=== PATIENT | male | born 1940 | race Caucasian/White ===

== ENCOUNTER 2017-12-15 14:55 | Inpatient (IN) ==
[2017-12-15] MEDS ORDERED: SODIUM PHOSPHATE ENEMA 133 ML BOTTLE RECTAL ONE ×3 (16:43→17:58)
[2017-12-15] MEDS ORDERED: SODIUM PHOSPHATE ENEMA 133 ML BOTTLE RECTAL STA ×4 (16:50→22:01)
[2017-12-15 20:47] LABS: Calcium 8.7 MG/DL (8.5-10.1); Osmolality,Calculated 271.2 MOS/KG (273-304)
[2017-12-15 21:01] LABS: Basophils % 0.1 % (0.0-0.8); Immature Granulocytes % 0.5 %; Immature Granulocytes Absolute 0.15 #; Lymphocytes # 0.6 10*3/uL (1.4-4.0); Lymphocytes % 2.1 % (21.2-54.2); Mean Corpuscular HGB Conc 33.3 GM/DL (32-36); Mean Corpuscular Hemoglobin 32 PG (27-34); Mean Corpuscular Volume 94.7 FL (87-102); Mean Platelet Volume 9.7 FL (9.6-12.0); Monocytes # 1.1 10*3/uL (0.11-0.8); Monocytes % 3.8 % (1.7-12.7); Neutrophils # 25.7 10*3/uL (1.4-7.4); Neutrophils % 93.5 % (38.7-73.9); Platelet Count 205 T/CUMM (130-400); Red Blood Count 4.12 MC/CUMM (3.8-5.5); Red Cell Distribution Width 12.7 % (9.3-17.3); White Blood Count 27.5 T/CUMM (4-12)
[2017-12-15 21:40] LABS: Band Neutrophils 10 % (0-10); Lymphocytes 3 % (20-55); Platelet Estimate Adequate; Segmented Neutrophils 83 % (50-85); Total Cells Counted 100
[2017-12-15] MEDS ORDERED: ONDANSETRON 4 MG/2 ML VIAL IV PRN (21:55)
[2017-12-15] MEDS ORDERED: ACETAMINOPHEN 325 MG TABLET PO PRN (21:55)
[2017-12-15] MEDS: SODIUM CHLORIDE 0.9% 1,000 ML IV SCH (22:06)
[2017-12-15] MEDS: DOCUSATE SODIUM 100 MG CAPSULE PO SCH (22:13)
[2017-12-15] MEDS ORDERED: PHENYLEPH/MINERAL OIL/PETROLAT 57 GM TUBE TOP PRN (22:25)
[2017-12-16] MEDS: SODIUM CHLORIDE 0.9% 1,000 ML IV SCH ×3 (06:32→23:00)
[2017-12-16 07:35] LABS: Basophils % 0.1 % (0.0-0.8); Eosinophils # 0.1 10*3/uL (0.0-0.87); Eosinophils % 0.5 % (0.00-10.9); Hematocrit 34.6 VOL% (42.0-52.0); Hemoglobin 11.9 GM/DL (14.0-18.0); Immature Granulocytes % 0.5 %; Immature Granulocytes Absolute 0.07 #; Lymphocytes # 1.2 10*3/uL (1.4-4.0); Lymphocytes % 7.9 % (21.2-54.2); Mean Corpuscular HGB Conc 34.4 GM/DL (32-36); Mean Corpuscular Hemoglobin 32 PG (27-34); Mean Corpuscular Volume 92.5 FL (87-102); Mean Platelet Volume 9.9 FL (9.6-12.0); Monocytes # 1.2 10*3/uL (0.11-0.8); Monocytes % 7.8 % (1.7-12.7); Neutrophils # 12.8 10*3/uL (1.4-7.4); Neutrophils % 83.2 % (38.7-73.9); Platelet Count 187 T/CUMM (130-400); Red Blood Count 3.74 MC/CUMM (3.8-5.5); White Blood Count 15.4 T/CUMM (4-12)
[2017-12-16] MEDS ORDERED: DIBUCAINE 1% OINT 28 GM TUBE TOP PRN (08:31)
[2017-12-16] MEDS: PANTOPRAZOLE 40 MG TABLET PO SCH (09:19)
[2017-12-16] MEDS: DILTIAZEM CD 180 MG CAPSULE PO SCH (09:19)
[2017-12-16] MEDS: TAMSULOSIN 0.4 MG CAPSULE PO SCH (09:19)
[2017-12-16] MEDS: DOCUSATE SODIUM 100 MG CAPSULE PO SCH ×2 (09:19→21:43)
[2017-12-16] MEDS: VALSARTAN 80 MG TABLET PO SCH (09:19)
[2017-12-16] MEDS: DIGOXIN 0.125 MG TABLET PO SCH (13:15)
[2017-12-16] MEDS ORDERED: CIPROFLOXACIN INJ 400 MG in PREMIX 1 EACH IV SCH (15:30)
[2017-12-16] MEDS ORDERED: LINACLOTIDE 145 MCG CAPSULE PO ONE (16:03)
[2017-12-16] MEDS ORDERED: MAGNESIUM HYDROXIDE SUSP 30 ML UDCUP PO ONE (17:07)
[2017-12-16] MEDS: APIXABAN 5 MG TABLET PO SCH (21:43)
[2017-12-17] MEDS: SODIUM CHLORIDE 0.9% 1,000 ML IV SCH ×3 (02:15→17:12)
[2017-12-17] MEDS: ASPIRIN EC 81 MG TABLET PO SCH (08:47)
[2017-12-17] MEDS: DILTIAZEM CD 180 MG CAPSULE PO SCH (08:47)
[2017-12-17] MEDS: VALSARTAN 80 MG TABLET PO SCH (08:47)
[2017-12-17] MEDS: APIXABAN 5 MG TABLET PO SCH ×2 (08:47→21:20)
[2017-12-17] MEDS: PANTOPRAZOLE 40 MG TABLET PO SCH (08:47)
[2017-12-17] MEDS: DOCUSATE SODIUM 100 MG CAPSULE PO SCH ×2 (08:48→21:20)
[2017-12-17] MEDS: DIGOXIN 0.125 MG TABLET PO SCH (08:48)
[2017-12-17] MEDS: VANCOMYCIN 50 MG/ML 60 ML/BOTTLE PO SCH ×3 (08:48→17:13)
[2017-12-17] MEDS ORDERED: INVOKAMET PO SCH (09:00)
[2017-12-18] MEDS: VANCOMYCIN 50 MG/ML 60 ML/BOTTLE PO SCH ×2 (01:12→05:51)
[2017-12-18] MEDS: SODIUM CHLORIDE 0.9% 1,000 ML IV SCH ×2 (01:12→08:44)
[2017-12-18 07:51] VITALS: BP 149/73
[2017-12-18] MEDS: DIGOXIN 0.125 MG TABLET PO SCH (08:42)
[2017-12-18] MEDS: TAMSULOSIN 0.4 MG CAPSULE PO SCH (08:43)
[2017-12-18] MEDS: APIXABAN 5 MG TABLET PO SCH (08:43)
[2017-12-18] MEDS: ASPIRIN EC 81 MG TABLET PO SCH (08:43)
[2017-12-18] MEDS: DOCUSATE SODIUM 100 MG CAPSULE PO SCH (08:43)
[2017-12-18] MEDS: PANTOPRAZOLE 40 MG TABLET PO SCH (08:43)
[2017-12-18] MEDS: VALSARTAN 80 MG TABLET PO SCH (08:43)
[2017-12-18] MEDS: DILTIAZEM CD 180 MG CAPSULE PO SCH (08:43)
== END 2017-12-18 09:30 | disposition home or self-care (01) | DRG 389 ==
LOC: N.2E 14:55 → N.ED 14:55 → N.2E 21:49
PROVIDERS: ADMIT Family Medicine; ATTEND Family Medicine

== ENCOUNTER 2019-01-23 07:07 | Observation (INO) ==
[2019-01-23] MEDS ORDERED: ONDANSETRON 4 MG/2 ML VIAL ONE (07:30)
[2019-01-23] MEDS ORDERED: SODIUM CHLORIDE 0.9% 1,000 ML IV STA (07:34)
[2019-01-23] MEDS ORDERED: ONDANSETRON 4 MG/2 ML VIAL IV STA (07:34)
[2019-01-23 07:38] LABS: Basophils % 0.3 % (0.0-0.8); Eosinophils % 0.3 % (0.00-10.9); Hematocrit 40.8 VOL% (42.0-52.0); Hemoglobin 13.2 GM/DL (14.0-18.0); Immature Granulocytes % 0.4 %; Immature Granulocytes Absolute 0.05 #; Lymphocytes # 0.2 10*3/uL (1.4-4.0); Lymphocytes % 1.7 % (21.2-54.2); Mean Corpuscular HGB Conc 32.4 GM/DL (32-36); Mean Corpuscular Volume 96.9 FL (87-102); Mean Platelet Volume 10.1 FL (9.6-12.0); Monocytes % 3.9 % (1.7-12.7); Neutrophils % 93.4 % (38.7-73.9); Platelet Count 176 T/CUMM (130-400); Red Blood Count 4.21 MC/CUMM (3.8-5.5); Red Cell Distribution Width 12.7 % (9.3-17.3); White Blood Count 11.9 T/CUMM (4-12)
[2019-01-23 07:55] LABS: Albumin 3.6 G/DL (3.4-5.0); Bilirubin,Total 0.5 MG/DL (0.2-1.0); Calcium 9.1 MG/DL (8.5-10.1); Osmolality,Calculated 290.3 MOS/KG (273-304)
[2019-01-23 07:57] LABS: Band Neutrophils 10 % (0-10); Hypochromasia 1+; Lymphocytes 1 % (20-55); Ovalocytes Slight; Platelet Estimate Adequate; Segmented Neutrophils 83 % (50-85); Total Cells Counted 100
[2019-01-23 08:13] LABS: Apearance,Urine CLEAR (Clear); Bilirubin,Urine Negative (Negative); Blood, Urine Negative (Negative); Glucose,Urine (UA) Negative (Negative); Ketones,Urine Negative (Negative); Mucus,Urine Occasional /LPF (Occasional); Nitrite,Urine Negative (Negative); Protein,Urine Negative; RBC,Urine 2 /HPF (0-4); Squamous Epithelial Cell,Urine Occasional /HPF (0-10); Urine Color Yellow (Yellow); Urine Specific Gravity 1.021 (1.001-1.035); Urine Urobilinogen < 2.0 EU/DL (0.2-1.0); WBC,Urine 1 /HPF (0-6)
[2019-01-23] MEDS ORDERED: ONDANSETRON 4 MG/2 ML VIAL IV PRN (12:48)
[2019-01-23] MEDS ORDERED: ACETAMINOPHEN 325 MG TABLET PO PRN (12:48)
[2019-01-23] MEDS ORDERED: KETOROLAC 15 MG/1 ML VIAL IV ONE (12:50)
[2019-01-23] MEDS ORDERED: HYOSCYAMINE 0.125 MG TABLET PO PRN (12:51)
[2019-01-23] MEDS ORDERED: SIMETHICONE CHEW 80 MG TABLET PO PRN (12:52)
[2019-01-23] MEDS: SODIUM CHLORIDE 0.9% 1,000 ML IV SCH ×2 (13:03→19:44)
[2019-01-23] MEDS ORDERED: DOCUSATE SODIUM 100 MG CAPSULE PO SCH (21:00)
[2019-01-23] MEDS ORDERED: DIPHENOXYLATE/ATROPINE 2.5-0.025 MG TABLET PO PRN (21:42)
[2019-01-23] MEDS ORDERED: LOPERAMIDE 2 MG CAPSULE PO PRN (22:13)
[2019-01-24] MEDS: SODIUM CHLORIDE 0.9% 1,000 ML IV SCH ×4 (02:45→23:18)
[2019-01-24 05:44] LABS: Basophils % 0.3 % (0.0-0.8); Eosinophils % 0.4 % (0.00-10.9); Hematocrit 32.6 VOL% (42.0-52.0); Hemoglobin 10.4 GM/DL (14.0-18.0); Immature Granulocytes % 0.6 %; Immature Granulocytes Absolute 0.04 #; Lymphocytes # 0.6 10*3/uL (1.4-4.0); Lymphocytes % 8.1 % (21.2-54.2); Mean Corpuscular HGB Conc 31.9 GM/DL (32-36); Mean Corpuscular Volume 98.5 FL (87-102); Mean Platelet Volume 10.2 FL (9.6-12.0); Monocytes % 11.1 % (1.7-12.7); Neutrophils % 79.5 % (38.7-73.9); Platelet Count 131 T/CUMM (130-400); Red Blood Count 3.31 MC/CUMM (3.8-5.5); Red Cell Distribution Width 13.2 % (9.3-17.3); White Blood Count 6.8 T/CUMM (4-12)
[2019-01-24 06:13] LABS: Calcium 7.8 MG/DL (8.5-10.1); Osmolality,Calculated 283.3 MOS/KG (273-304)
[2019-01-24] MEDS: PANTOPRAZOLE 40 MG TABLET PO SCH (09:16)
[2019-01-24] MEDS: MAGNESIUM CHLORIDE 64 MG TABLET PO SCH ×2 (09:17→20:31)
[2019-01-24] MEDS: POTASSIUM CHLORIDE 20 MEQ TABLET PO SCH (09:17)
[2019-01-24] MEDS ORDERED: TAMSULOSIN 0.4 MG CAPSULE PO SCH (17:00)
[2019-01-24] MEDS: APIXABAN 5 MG TABLET PO SCH (20:31)
[2019-01-25] MEDS: SODIUM CHLORIDE 0.9% 1,000 ML IV SCH (06:06)
[2019-01-25 07:39] VITALS: BP 136/78
[2019-01-25] MEDS ORDERED: DIGOXIN 0.125 MG TABLET PO SCH (09:00)
[2019-01-25] MEDS ORDERED: DILTIAZEM CD 180 MG CAPSULE PO SCH (09:00)
[2019-01-25] MEDS ORDERED: CANAGLIFLOZIN METFORMIN PO SCH (09:00)
[2019-01-25] MEDS ORDERED: ATORVASTATIN 20 MG TABLET PO SCH (09:00)
[2019-01-25] MEDS ORDERED: MULTIVITAMIN (CENTRUM) TABLET PO SCH (09:00)
[2019-01-25] MEDS ORDERED: VALSARTAN 80 MG TABLET PO SCH (09:00)
[2019-01-25] MEDS ORDERED: ASPIRIN EC 81 MG TABLET PO SCH (09:00)
[2019-01-25] MEDS: PANTOPRAZOLE 40 MG TABLET PO SCH (09:20)
[2019-01-25] MEDS: MAGNESIUM CHLORIDE 64 MG TABLET PO SCH (09:21)
[2019-01-25] MEDS: POTASSIUM CHLORIDE 20 MEQ TABLET PO SCH (09:21)
[2019-01-25] MEDS: APIXABAN 5 MG TABLET PO SCH (09:22)
== END 2019-01-25 10:25 | disposition home or self-care (01) ==
LOC: EDUNIT# → EDBD → N.EDINP 07:07 → N.ED 07:07 → N.2E 10:30
PROVIDERS: ADMIT Family Medicine; ATTEND Family Medicine

== ENCOUNTER 2019-07-22 18:36 | Inpatient (IN) ==
[2019-07-22] MEDS ORDERED: DIPHTHERIA/TETANUS ADULT VACCINE 0.5 ML SYRINGE IM ONE (18:57)
[2019-07-22] MEDS ORDERED: ACETAMINOPHEN 500 MG TABLET ONE (20:49)
[2019-07-22 20:58] LABS: Basophils % 0.1 % (0.0-0.8); Eosinophils # 0.1 10*3/uL (0.0-0.87); Eosinophils % 0.3 % (0.00-10.9); Hematocrit 39.9 VOL% (42.0-52.0); Hemoglobin 12.8 GM/DL (14.0-18.0); Immature Granulocytes % 0.7 %; Immature Granulocytes Absolute 0.11 #; Lymphocytes # 0.5 10*3/uL (1.4-4.0); Lymphocytes % 3.3 % (21.2-54.2); Mean Corpuscular HGB Conc 32.1 GM/DL (32-36); Mean Corpuscular Volume 98.3 FL (87-102); Mean Platelet Volume 10.4 FL (9.6-12.0); Monocytes % 5.3 % (1.7-12.7); Neutrophils % 90.3 % (38.7-73.9); Platelet Count 206 T/CUMM (130-400); Red Blood Count 4.06 MC/CUMM (3.8-5.5); Red Cell Distribution Width 13.2 % (9.3-17.3); White Blood Count 15.6 T/CUMM (4-12)
[2019-07-22] MEDS ORDERED: ACETAMINOPHEN 500 MG TABLET PO STA (20:58)
[2019-07-22 21:10] LABS: Albumin 4.2 G/DL (3.4-5.0); Bilirubin,Total 0.4 MG/DL (0.2-1.0); Calcium 9.3 MG/DL (8.5-10.1); Osmolality,Calculated 272.4 MOS/KG (273-304); Total Protein 7.6 G/DL (6.4-8.3)
[2019-07-22 21:12] LABS: PT Patient Result 10.4 SECS (9.6-12.2); Partial Thromboplastin Time 25.7 SECS (20.8-36.0)
[2019-07-22 21:19] LABS: Lymphocytes 5 % (20-55); Platelet Estimate Adequate; Segmented Neutrophils 92 % (50-85); Total Cells Counted 100
[2019-07-22 21:28] LABS: Apearance,Urine CLEAR (Clear); Bilirubin,Urine Negative (Negative); Blood, Urine Small mg/dL (Negative); Glucose,Urine (UA) Negative (Negative); Hyaline Casts,Urine 4 /LPF (0-3); Ketones,Urine Negative (Negative); Mucus,Urine Occasional /LPF (Occasional); Nitrite,Urine Negative (Negative); Protein,Urine 30 MG/DL; RBC,Urine 1 /HPF (0-4); Squamous Epithelial Cell,Urine Occasional /HPF (0-10); Urine Color Yellow (Yellow); Urine Urobilinogen < 2.0 EU/DL (0.2-1.0); WBC,Urine 2 /HPF (0-6)
[2019-07-22] MEDS ORDERED: ACETAMINOPHEN 325 MG TABLET PO PRN (21:55)
[2019-07-22] MEDS ORDERED: ONDANSETRON 4 MG/2 ML VIAL IV PRN (21:55)
[2019-07-22] MEDS ORDERED: COLCHICINE 0.6 MG CAPSULE PO PRN (21:58)
[2019-07-22] MEDS ORDERED: PHENYLEPH/MINERAL OIL/PETROLAT 57 GM TUBE TOP PRN (21:58)
[2019-07-22] MEDS ORDERED: DEXTROSE 50% 25 GM/50 ML SYRINGE IV PRN (21:59)
[2019-07-22] MEDS ORDERED: GLUCAGON 1 MG VIAL IM PRN (21:59)
[2019-07-23 01:14] LABS: Basophils % 0.2 % (0.0-0.8); Eosinophils % 0.2 % (0.00-10.9); Hematocrit 34.6 VOL% (42.0-52.0); Hemoglobin 11.2 GM/DL (14.0-18.0); Immature Granulocytes % 0.3 %; Immature Granulocytes Absolute 0.04 #; Lymphocytes # 0.6 10*3/uL (1.4-4.0); Lymphocytes % 4.7 % (21.2-54.2); Mean Corpuscular HGB Conc 32.4 GM/DL (32-36); Mean Platelet Volume 10.5 FL (9.6-12.0); Monocytes % 5.8 % (1.7-12.7); Neutrophils % 88.8 % (38.7-73.9); Platelet Count 185 T/CUMM (130-400); Red Blood Count 3.53 MC/CUMM (3.8-5.5); Red Cell Distribution Width 13.3 % (9.3-17.3); White Blood Count 13.3 T/CUMM (4-12)
[2019-07-23 04:56] LABS: Anisocytosis 1+; Eosinophils 2 % (0-10); Hypochromasia 1+; Lymphocytes 5 % (20-55); Platelet Estimate Adequate; Segmented Neutrophils 88 % (50-85); Total Cells Counted 100
[2019-07-23] MEDS: HYDROmorphone 2 MG/1 ML VIAL IV PRN ×2 (09:21→18:43)
[2019-07-23] MEDS: DIGOXIN 0.125 MG TABLET PO SCH (09:22)
[2019-07-23] MEDS: CYANOCOBALAMIN 500 MCG TABLET PO SCH (09:23)
[2019-07-23] MEDS: PANTOPRAZOLE 40 MG TABLET PO SCH (09:23)
[2019-07-23] MEDS: DILTIAZEM CD 180 MG CAPSULE PO SCH (09:23)
[2019-07-23] MEDS: VALSARTAN 80 MG TABLET PO SCH (09:23)
[2019-07-23] MEDS: DOCUSATE SODIUM 100 MG CAPSULE PO SCH ×2 (09:23→23:50)
[2019-07-23] MEDS: ATORVASTATIN 20 MG TABLET PO SCH (09:23)
[2019-07-23] MEDS: OMEGA 3 ACID ETHYL ESTERS 1 GM CAPSULE PO SCH (09:23)
[2019-07-23 10:20] LABS: Hematocrit 33.2 VOL% (42.0-52.0); Hemoglobin 10.6 GM/DL (14.0-18.0)
[2019-07-23 18:27] LABS: Albumin 3.1 G/DL (3.4-5.0); Bilirubin,Total 0.6 MG/DL (0.2-1.0); Osmolality,Calculated 276.4 MOS/KG (273-304); Total Protein 6.1 G/DL (6.4-8.3)
[2019-07-24 05:27] LABS: Basophils % 0.4 % (0.0-0.8); Eosinophils # 0.3 10*3/uL (0.0-0.87); Eosinophils % 2.7 % (0.00-10.9); Hematocrit 30.3 VOL% (42.0-52.0); Hemoglobin 10.1 GM/DL (14.0-18.0); Immature Granulocytes % 0.3 %; Immature Granulocytes Absolute 0.03 #; Lymphocytes # 0.9 10*3/uL (1.4-4.0); Lymphocytes % 8.3 % (21.2-54.2); Mean Corpuscular HGB Conc 33.3 GM/DL (32-36); Mean Corpuscular Volume 96.8 FL (87-102); Mean Platelet Volume 11.4 FL (9.6-12.0); Monocytes % 10.2 % (1.7-12.7); Neutrophils % 78.1 % (38.7-73.9); Platelet Count 73 T/CUMM (130-400); Red Blood Count 3.13 MC/CUMM (3.8-5.5); Red Cell Distribution Width 13.5 % (9.3-17.3); White Blood Count 10.6 T/CUMM (4-12)
[2019-07-24 05:47] LABS: Eosinophils 3 % (0-10); Hypochromasia 1+; Lymphocytes 7 % (20-55); Ovalocytes Slight; Segmented Neutrophils 83 % (50-85); Total Cells Counted 100
[2019-07-24] MEDS ORDERED: MAGNESIUM HYDROXIDE SUSP 30 ML UDCUP PO ONE (08:56)
[2019-07-24] MEDS ORDERED: TAMSULOSIN 0.4 MG CAPSULE PO SCH (09:00)
[2019-07-24] MEDS: SODIUM CHLORIDE 0.9% 1,000 ML IV SCH ×2 (09:13→21:11)
[2019-07-24] MEDS: DIGOXIN 0.125 MG TABLET PO SCH (09:14)
[2019-07-24] MEDS: DILTIAZEM CD 180 MG CAPSULE PO SCH (09:14)
[2019-07-24] MEDS: PANTOPRAZOLE 40 MG TABLET PO SCH (09:15)
[2019-07-24] MEDS: DOCUSATE SODIUM 100 MG CAPSULE PO SCH ×2 (09:15→21:00)
[2019-07-24] MEDS: OMEGA 3 ACID ETHYL ESTERS 1 GM CAPSULE PO SCH (09:15)
[2019-07-24] MEDS: ATORVASTATIN 20 MG TABLET PO SCH (09:15)
[2019-07-24] MEDS: CYANOCOBALAMIN 500 MCG TABLET PO SCH (09:15)
[2019-07-24] MEDS: VALSARTAN 80 MG TABLET PO SCH (09:17)
[2019-07-24] MEDS: HYDROmorphone 2 MG/1 ML VIAL IV PRN (21:00)
[2019-07-25 05:24] LABS: Basophils % 0.3 % (0.0-0.8); Eosinophils # 0.3 10*3/uL (0.0-0.87); Eosinophils % 3.2 % (0.00-10.9); Hemoglobin 9.1 GM/DL (14.0-18.0); Immature Granulocytes % 0.4 %; Immature Granulocytes Absolute 0.04 #; Lymphocytes # 0.8 10*3/uL (1.4-4.0); Lymphocytes % 8.4 % (21.2-54.2); Mean Corpuscular HGB Conc 32.5 GM/DL (32-36); Mean Corpuscular Volume 97.2 FL (87-102); Mean Platelet Volume 10.3 FL (9.6-12.0); Monocytes % 10.1 % (1.7-12.7); Neutrophils % 77.6 % (38.7-73.9); Platelet Count 148 T/CUMM (130-400); Red Blood Count 2.88 MC/CUMM (3.8-5.5); Red Cell Distribution Width 13.2 % (9.3-17.3); White Blood Count 9.8 T/CUMM (4-12)
[2019-07-25 05:31] LABS: Albumin 2.6 G/DL (3.4-5.0); Bilirubin,Total 0.6 MG/DL (0.2-1.0); Calcium 7.8 MG/DL (8.5-10.1); Osmolality,Calculated 265.7 MOS/KG (273-304); Total Protein 5.7 G/DL (6.4-8.3)
[2019-07-25] MEDS: SODIUM CHLORIDE 0.9% 1,000 ML IV SCH (06:17)
[2019-07-25] MEDS: HYDROmorphone 2 MG/1 ML VIAL IV PRN (07:30)
[2019-07-25 07:57] VITALS: BP 128/69
[2019-07-25] MEDS: DOCUSATE SODIUM 100 MG CAPSULE PO SCH (08:57)
[2019-07-25] MEDS: PANTOPRAZOLE 40 MG TABLET PO SCH (08:57)
[2019-07-25] MEDS: DIGOXIN 0.125 MG TABLET PO SCH (08:57)
[2019-07-25] MEDS: ATORVASTATIN 20 MG TABLET PO SCH (08:57)
[2019-07-25] MEDS: VALSARTAN 80 MG TABLET PO SCH (08:58)
[2019-07-25] MEDS: OMEGA 3 ACID ETHYL ESTERS 1 GM CAPSULE PO SCH (08:58)
[2019-07-25] MEDS: CYANOCOBALAMIN 500 MCG TABLET PO SCH (08:58)
[2019-07-25] MEDS: DILTIAZEM CD 180 MG CAPSULE PO SCH (08:58)
== END 2019-07-25 12:40 | disposition home or self-care (01) | DRG 815 ==
LOC: EDUNIT# → EDBD → N.ED 18:36 → N.EDINP 18:36 → N.TELES 07-23
PROVIDERS: ADMIT Family Medicine; ATTEND Family Medicine

== ENCOUNTER 2021-11-08 14:05 | Inpatient (IN) ==
[2021-11-08 16:10] LABS: Basophils % 0.1 % (0.0-0.8); Hematocrit 31.3 VOL% (42.0-52.0); Immature Granulocytes % 0.6 %; Lymphocytes # 0.3 10*3/uL (1.4-4.0); Lymphocytes % 1.6 % (21.2-54.2); Mean Corpuscular HGB Conc 31.9 GM/DL (32-36); Mean Corpuscular Volume 96.9 FL (87-102); Mean Platelet Volume 9.8 FL (9.6-12.0); Monocytes # 0.8 10*3/uL (0.11-0.8); Monocytes % 4.4 % (1.7-12.7); Neutrophils % 93.3 % (38.7-73.9); Platelet Count 173 T/CUMM (130-400); Red Blood Count 3.23 MC/CUMM (3.8-5.5); Red Cell Distribution Width 14.6 % (9.3-17.3); White Blood Count 18.2 T/CUMM (4-12)
[2021-11-08] MEDS ORDERED: MORPHINE 2 MG/1 ML SYRINGE IV STA (16:11)
[2021-11-08] MEDS ORDERED: ONDANSETRON 4 MG/2 ML VIAL IV STA (16:12)
[2021-11-08] MEDS ORDERED: PIPERACILLIN/TAZOBACTAM 3,375 MG in SODIUM CHLORIDE 0.9% 100 ML IV STA (16:13)
[2021-11-08 16:29] LABS: Albumin 2.8 G/DL (3.4-5.0); Bilirubin,Total 0.6 MG/DL (0.20-1.00); Osmolality,Calculated 270.7 MOS/KG (273-304); Potassium 4.1 MMOL/L (3.5-5.1); Total Protein 6.9 G/DL (6.4-8.2)
[2021-11-08 17:00] LABS: Band Neutrophils 15 % (0-10); Lymphocytes 2 % (20-55); Total Cells Counted 100
[2021-11-08 17:01] LABS: Platelet Estimate Adequate
[2021-11-08] MEDS ORDERED: PROMETHAZINE 25 MG/1 ML VIAL IM PRN (17:29)
[2021-11-08] MEDS ORDERED: ACETAMINOPHEN 325 MG TABLET PO PRN (17:29)
[2021-11-08] MEDS ORDERED: ONDANSETRON 4 MG/2 ML VIAL IV PRN (17:29)
[2021-11-08] MEDS: KETOROLAC 30 MG/1 ML VIAL IV SCH (18:49)
[2021-11-08] MEDS: HYDROmorphone 1 MG/1 ML SYRINGE IV PRN (21:12)
[2021-11-09] MEDS: PIPERACILLIN/TAZOBACTAM 3,375 MG in SODIUM CHLORIDE 0.9% 100 ML IV SCH ×3 (01:06→17:53)
[2021-11-09] MEDS: KETOROLAC 30 MG/1 ML VIAL IV SCH ×5 (01:15→23:13)
[2021-11-09] MEDS: HYDROmorphone 1 MG/1 ML SYRINGE IV PRN ×2 (03:06→08:38)
[2021-11-09 05:43] LABS: Basophils % 0.2 % (0.0-0.8); Hematocrit 29.2 VOL% (42.0-52.0); Hemoglobin 9.5 GM/DL (14.0-18.0); Immature Granulocytes % 0.3 %; Immature Granulocytes Absolute 0.02 #; Lymphocytes # 0.1 10*3/uL (1.4-4.0); Lymphocytes % 1.5 % (21.2-54.2); Mean Corpuscular HGB Conc 32.5 GM/DL (32-36); Mean Corpuscular Volume 93.9 FL (87-102); Mean Platelet Volume 9.8 FL (9.6-12.0); Monocytes # 0.4 10*3/uL (0.11-0.8); Monocytes % 7.1 % (1.7-12.7); Neutrophils % 90.9 % (38.7-73.9); Platelet Count 146 T/CUMM (130-400); Red Blood Count 3.11 MC/CUMM (3.8-5.5); Red Cell Distribution Width 14.4 % (9.3-17.3); White Blood Count 5.9 T/CUMM (4-12)
[2021-11-09 05:59] LABS: Calcium 8.9 MG/DL (8.5-10.1); Osmolality,Calculated 268.7 MOS/KG (273-304)
[2021-11-09 07:03] LABS: Band Neutrophils 3 % (0-10); Lymphocytes 15 % (20-55); Platelet Estimate Normal; Total Cells Counted 100
[2021-11-09] MEDS: PANTOPRAZOLE 40 MG VIAL IV SCH (08:38)
[2021-11-09] MEDS: ENOXAPARIN 40 MG/0.4 ML SYRINGE SUBCUT SCH (12:36)
[2021-11-09] MEDS: BENZONATATE 100 MG CAPSULE PO PRN (20:32)
[2021-11-10] MEDS: PIPERACILLIN/TAZOBACTAM 3,375 MG in SODIUM CHLORIDE 0.9% 100 ML IV SCH ×4 (01:30→23:46)
[2021-11-10] MEDS: KETOROLAC 30 MG/1 ML VIAL IV SCH ×4 (05:48→23:44)
[2021-11-10 06:57] LABS: Basophils % 0.1 % (0.0-0.8); Hemoglobin 9.8 GM/DL (14.0-18.0); Immature Granulocytes % 0.5 %; Immature Granulocytes Absolute 0.04 #; Lymphocytes # 0.2 10*3/uL (1.4-4.0); Lymphocytes % 2.1 % (21.2-54.2); Mean Corpuscular HGB Conc 32.7 GM/DL (32-36); Mean Corpuscular Volume 93.2 FL (87-102); Mean Platelet Volume 10.3 FL (9.6-12.0); Monocytes # 0.5 10*3/uL (0.11-0.8); Monocytes % 7.2 % (1.7-12.7); Neutrophils % 90.1 % (38.7-73.9); Platelet Count 139 T/CUMM (130-400); Red Blood Count 3.22 MC/CUMM (3.8-5.5); Red Cell Distribution Width 14.4 % (9.3-17.3); White Blood Count 7.5 T/CUMM (4-12)
[2021-11-10 07:19] LABS: Band Neutrophils 3 % (0-10); Lymphocytes 2 % (20-55); Platelet Estimate Normal; Total Cells Counted 100
[2021-11-10 07:39] LABS: Calcium 8.6 MG/DL (8.5-10.1); Osmolality,Calculated 271.7 MOS/KG (273-304); Potassium 3.8 MMOL/L (3.5-5.1)
[2021-11-10] MEDS: LACTATED RINGERS 1,000 ML IV SCH (08:28)
[2021-11-10] MEDS: PANTOPRAZOLE 40 MG VIAL IV SCH (08:29)
[2021-11-10] MEDS: ENOXAPARIN 40 MG/0.4 ML SYRINGE SUBCUT SCH (10:25)
[2021-11-10] MEDS: BENZONATATE 100 MG CAPSULE PO PRN (16:37)
[2021-11-11] MEDS: LACTATED RINGERS 1,000 ML IV SCH ×5 (00:25→22:19)
[2021-11-11 05:34] LABS: Basophils % 0.2 % (0.0-0.8); Eosinophils % 0.2 % (0.00-10.9); Hematocrit 27.3 VOL% (42.0-52.0); Hemoglobin 9.1 GM/DL (14.0-18.0); Immature Granulocytes % 1.5 %; Immature Granulocytes Absolute 0.09 #; Lymphocytes # 0.2 10*3/uL (1.4-4.0); Mean Corpuscular HGB Conc 33.3 GM/DL (32-36); Mean Corpuscular Volume 92.2 FL (87-102); Mean Platelet Volume 10.6 FL (9.6-12.0); Monocytes # 0.6 10*3/uL (0.11-0.8); Neutrophils % 86.1 % (38.7-73.9); Platelet Count 136 T/CUMM (130-400); Red Blood Count 2.96 MC/CUMM (3.8-5.5); Red Cell Distribution Width 14.6 % (9.3-17.3); White Blood Count 6.1 T/CUMM (4-12)
[2021-11-11] MEDS: KETOROLAC 30 MG/1 ML VIAL IV SCH (05:39)
[2021-11-11 05:50] LABS: Albumin 1.6 G/DL (3.4-5.0); Bilirubin,Total 0.8 MG/DL (0.20-1.00); Calcium 8.1 MG/DL (8.5-10.1); Osmolality,Calculated 276.7 MOS/KG (273-304); Total Protein 5.5 G/DL (6.4-8.2)
[2021-11-11 05:59] LABS: Band Neutrophils 11 % (0-10); Eosinophils 1 % (0-10); Lymphocytes 2 % (20-55); Total Cells Counted 100
[2021-11-11] MEDS ORDERED: LACTATED RINGERS 1,000 ML IV ONE ×2 (06:49→14:36)
[2021-11-11] MEDS: ENOXAPARIN 30 MG/0.3 ML SYRINGE SUBCUT SCH (08:15)
[2021-11-11] MEDS: PANTOPRAZOLE 40 MG VIAL IV SCH (08:15)
[2021-11-11] MEDS: PIPERACILLIN/TAZOBACTAM 3,375 MG in SODIUM CHLORIDE 0.9% 100 ML IV SCH (12:31)
[2021-11-11 12:54] LABS: Calcium 8.4 MG/DL (8.5-10.1); Osmolality,Calculated 280.8 MOS/KG (273-304); Potassium 4.1 MMOL/L (3.5-5.1)
[2021-11-11] MEDS ORDERED: TAMSULOSIN 0.4 MG CAPSULE PO SCH (15:00)
[2021-11-11] MEDS: HYDROmorphone 1 MG/1 ML SYRINGE IV PRN (19:53)
[2021-11-11] MEDS: BENZONATATE 100 MG CAPSULE PO PRN (21:20)
[2021-11-11] MEDS: TAMSULOSIN 0.4 MG CAPSULE PO SCH (21:20)
[2021-11-12] MEDS: PIPERACILLIN/TAZOBACTAM 3,375 MG in SODIUM CHLORIDE 0.9% 100 ML IV SCH (00:14)
[2021-11-12] MEDS: LACTATED RINGERS 1,000 ML IV SCH (03:57)
[2021-11-12] MEDS: HYDROmorphone 1 MG/1 ML SYRINGE IV PRN (03:58)
[2021-11-12 05:17] LABS: Basophils % 0.1 % (0.0-0.8); Eosinophils % 0.1 % (0.00-10.9); Hematocrit 25.5 VOL% (42.0-52.0); Hemoglobin 8.3 GM/DL (14.0-18.0); Immature Granulocytes % 2.1 %; Lymphocytes # 0.3 10*3/uL (1.4-4.0); Lymphocytes % 3.2 % (21.2-54.2); Mean Corpuscular HGB Conc 32.5 GM/DL (32-36); Mean Corpuscular Volume 93.1 FL (87-102); Mean Platelet Volume 10.7 FL (9.6-12.0); Monocytes # 0.9 10*3/uL (0.11-0.8); Monocytes % 9.4 % (1.7-12.7); Neutrophils % 85.1 % (38.7-73.9); Platelet Count 149 T/CUMM (130-400); Red Blood Count 2.74 MC/CUMM (3.8-5.5); Red Cell Distribution Width 14.8 % (9.3-17.3); White Blood Count 9.5 T/CUMM (4-12)
[2021-11-12 05:32] LABS: Calcium 8.2 MG/DL (8.5-10.1); Osmolality,Calculated 270.4 MOS/KG (273-304); Potassium 3.9 MMOL/L (3.5-5.1)
[2021-11-12 05:42] LABS: Band Neutrophils 1 % (0-10); Lymphocytes 2 % (20-55); Platelet Estimate Adequate; Total Cells Counted 100
[2021-11-12] MEDS: DEXTROSE 5% NACL 0.9% 1,000 ML IV SCH ×3 (07:16→21:37)
[2021-11-12] MEDS ORDERED: SODIUM CHLORIDE 0.9% 1,000 ML IV ONE ×4 (07:32→18:43)
[2021-11-12] MEDS: DIGOXIN 0.125 MG TABLET PO SCH (09:18)
[2021-11-12] MEDS: ENOXAPARIN 30 MG/0.3 ML SYRINGE SUBCUT SCH (09:18)
[2021-11-12] MEDS: PANTOPRAZOLE 40 MG VIAL IV SCH (09:18)
[2021-11-12] MEDS: ERTAPENEM 500 MG in SODIUM CHLORIDE 0.9% 100 ML IV SCH (09:18)
[2021-11-12 14:35] LABS: Basophils % 0.1 % (0.0-0.8); Eosinophils % 0.2 % (0.00-10.9); Hematocrit 26.2 VOL% (42.0-52.0); Hemoglobin 8.7 GM/DL (14.0-18.0); Immature Granulocytes Absolute 0.31 #; Lymphocytes # 0.3 10*3/uL (1.4-4.0); Lymphocytes % 3.2 % (21.2-54.2); Mean Corpuscular HGB Conc 33.2 GM/DL (32-36); Mean Corpuscular Volume 92.6 FL (87-102); Mean Platelet Volume 10.4 FL (9.6-12.0); Monocytes % 9.5 % (1.7-12.7); Platelet Count 163 T/CUMM (130-400); Red Blood Count 2.83 MC/CUMM (3.8-5.5); Red Cell Distribution Width 14.9 % (9.3-17.3); White Blood Count 10.3 T/CUMM (4-12)
[2021-11-12 14:55] LABS: Calcium 8.3 MG/DL (8.5-10.1); Osmolality,Calculated 278.2 MOS/KG (273-304); Potassium 3.9 MMOL/L (3.5-5.1)
[2021-11-12 15:13] LABS: Band Neutrophils 13 % (0-10); Lymphocytes 4 % (20-55); Total Cells Counted 100
[2021-11-12 15:14] LABS: Platelet Estimate Adequate
[2021-11-12] MEDS ORDERED: SODIUM CHLORIDE 0.9% 1,000 ML IV PRN ×2 (16:37→16:40)
[2021-11-12] MEDS ORDERED: ROCURONIUM 50 MG/5 ML VIAL IV ONE ×2 (17:02→19:14)
[2021-11-12] MEDS ORDERED: LIDOCAINE 2% 5 ML VIAL ONE (17:02)
[2021-11-12] MEDS ORDERED: ETOMIDATE 40 MG/20 ML VIAL IV ONE (17:02)
[2021-11-12] MEDS ORDERED: SUCCINYLCHOLINE 200 MG/10 ML VIAL ONE (17:02)
[2021-11-12] MEDS ORDERED: fentaNYL 100 MCG/2 ML VIAL ONE ×2 (17:04→18:13)
[2021-11-12] MEDS ORDERED: HEPARIN/NACL 0.9% 2 UNITS/ML 1,000 UNIT/500 ML BAG IV ONE (17:23)
[2021-11-12] MEDS ORDERED: PHENYLEPHRINE 1 MG/10 ML SYRINGE IV ONE (17:34)
[2021-11-12 18:18] LABS: ABG Base Excess -5.1 MMOL/L (-2.5-2.5); ABG HCO3 20.2 MMOL/L (20-26); ABG Oxygen Saturation 99.7 % (95-100); ABG PCO2 36.4 MM HG (35-48); ABG PH 7.349 (7.35-7.45); ABG TCO2 18.7 MMOL/L (23-27); Glucose Heart Surgery 198 MG/DL (74-106); Potassium Heart/CVR 3.9 MMOL/L (3.5-5.1)
[2021-11-12 18:21] LABS: Hematocrit 23.6 VOL% (42.0-52.0); Hemoglobin 7.8 GM/DL (14.0-18.0)
[2021-11-12 18:43] LABS: Calcium 7.9 MG/DL (8.5-10.1); Osmolality,Calculated 276.2 MOS/KG (273-304); Potassium 3.9 MMOL/L (3.5-5.1)
[2021-11-12] MEDS ORDERED: PHENYLEPH/MINERAL OIL/PETROLAT 57 GM TUBE TOP PRN (19:45)
[2021-11-12 20:22] LABS: Basophils % 0.3 % (0.0-0.8); Eosinophils % 0.3 % (0.00-10.9); Hematocrit 32.2 VOL% (42.0-52.0); Hemoglobin 10.4 GM/DL (14.0-18.0); Immature Granulocytes % 6.1 %; Lymphocytes # 0.3 10*3/uL (1.4-4.0); Mean Corpuscular HGB Conc 32.3 GM/DL (32-36); Mean Corpuscular Volume 95.3 FL (87-102); Mean Platelet Volume 10.5 FL (9.6-12.0); Monocytes # 0.3 10*3/uL (0.11-0.8); Monocytes % 5.2 % (1.7-12.7); Neutrophils % 84.1 % (38.7-73.9); Platelet Count 150 T/CUMM (130-400); Red Blood Count 3.38 MC/CUMM (3.8-5.5); Red Cell Distribution Width 14.7 % (9.3-17.3); White Blood Count 6.6 T/CUMM (4-12)
[2021-11-12 20:39] LABS: Calcium 7.7 MG/DL (8.5-10.1); Osmolality,Calculated 279.1 MOS/KG (273-304); Potassium 3.7 MMOL/L (3.5-5.1)
[2021-11-12 20:50] LABS: Band Neutrophils 18 % (0-10); Lymphocytes 2 % (20-55); Metamyelocytes 2 %; Myelocytes 1 %; Total Cells Counted 100
[2021-11-12 20:51] LABS: Platelet Estimate Adequate
[2021-11-12 22:19] LABS: ABG Base Excess -8.1 MMOL/L (-2.5-2.5); ABG HCO3 17.9 MMOL/L (20-26); ABG Oxygen Saturation 99.6 % (95-100); ABG PCO2 40.9 MM HG (35-48); ABG PH 7.264 (7.35-7.45); ABG TCO2 17.1 MMOL/L (23-27)
[2021-11-13] MEDS: TAMSULOSIN 0.4 MG CAPSULE PO SCH ×2 (00:45→20:30)
[2021-11-13 03:57] LABS: ABG Base Excess -7.3 MMOL/L (-2.5-2.5); ABG HCO3 18.5 MMOL/L (20-26); ABG Oxygen Saturation 99.3 % (95-100); ABG PCO2 37.3 MM HG (35-48); ABG PH 7.303 (7.35-7.45); ABG TCO2 17.1 MMOL/L (23-27)
[2021-11-13 04:03] LABS: Basophils % 0.2 % (0.0-0.8); Eosinophils % 0.2 % (0.00-10.9); Hematocrit 27.9 VOL% (42.0-52.0); Hemoglobin 9.1 GM/DL (14.0-18.0); Immature Granulocytes % 2.4 %; Immature Granulocytes Absolute 0.32 #; Lymphocytes # 0.3 10*3/uL (1.4-4.0); Mean Corpuscular HGB Conc 32.6 GM/DL (32-36); Mean Corpuscular Volume 94.9 FL (87-102); Mean Platelet Volume 10.6 FL (9.6-12.0); Monocytes # 0.9 10*3/uL (0.11-0.8); Monocytes % 6.6 % (1.7-12.7); Neutrophils % 88.6 % (38.7-73.9); Platelet Count 130 T/CUMM (130-400); Red Blood Count 2.94 MC/CUMM (3.8-5.5); White Blood Count 13.1 T/CUMM (4-12)
[2021-11-13 04:13] LABS: Calcium 7.4 MG/DL (8.5-10.1); Osmolality,Calculated 288.7 MOS/KG (273-304); Potassium 3.9 MMOL/L (3.5-5.1)
[2021-11-13 04:31] LABS: Band Neutrophils 10 % (0-10); Lymphocytes 7 % (20-55); Metamyelocytes 1 %; Myelocytes 1 %; Total Cells Counted 100
[2021-11-13 04:32] LABS: Microcytosis Slight; Platelet Estimate Adequate
[2021-11-13] MEDS ORDERED: SODIUM CHLORIDE 0.9% 1,000 ML IV ONE (07:00)
[2021-11-13] MEDS: DEXTROSE 5% NACL 0.9% 1,000 ML IV SCH ×6 (07:00→19:08)
[2021-11-13] MEDS: ENOXAPARIN 30 MG/0.3 ML SYRINGE SUBCUT SCH (10:38)
[2021-11-13] MEDS: LORATADINE 10 MG TABLET PO SCH (10:38)
[2021-11-13] MEDS: ASPIRIN EC 81 MG TABLET PO SCH (10:38)
[2021-11-13] MEDS: MULTIVITAMIN (CENTRUM) TABLET PO SCH (10:38)
[2021-11-13] MEDS: DIGOXIN 0.125 MG TABLET PO SCH (10:39)
[2021-11-13] MEDS: DILTIAZEM CD 180 MG CAPSULE PO SCH (10:40)
[2021-11-13] MEDS: OMEGA 3 ACID ETHYL ESTERS 1 GM CAPSULE PO SCH (10:40)
[2021-11-13] MEDS: CYANOCOBALAMIN 500 MCG TABLET PO SCH (10:40)
[2021-11-13] MEDS: ATORVASTATIN 40 MG TABLET PO SCH (10:40)
[2021-11-13] MEDS: ERTAPENEM 500 MG in SODIUM CHLORIDE 0.9% 100 ML IV SCH (10:42)
[2021-11-13] MEDS: PANTOPRAZOLE 40 MG VIAL IV SCH (10:46)
[2021-11-13] MEDS: HYDROmorphone 1 MG/1 ML SYRINGE IV PRN ×2 (12:30→20:36)
[2021-11-14] MEDS: DEXTROSE 5% NACL 0.9% 1,000 ML IV SCH ×6 (01:48→19:20)
[2021-11-14] MEDS: HYDROmorphone 1 MG/1 ML SYRINGE IV PRN (02:12)
[2021-11-14 04:22] LABS: ABG HCO3 16.3 MMOL/L (20-26); ABG Oxygen Saturation 98.3 % (95-100); ABG PCO2 41.2 MM HG (35-48); ABG PH 7.224 (7.35-7.45); ABG TCO2 16.2 MMOL/L (23-27)
[2021-11-14 04:42] LABS: Calcium 7.2 MG/DL (8.5-10.1); Osmolality,Calculated 294.4 MOS/KG (273-304); Potassium 3.9 MMOL/L (3.5-5.1)
[2021-11-14 04:53] LABS: Basophils % 0.1 % (0.0-0.8); Eosinophils # 0.1 10*3/uL (0.0-0.87); Eosinophils % 0.5 % (0.00-10.9); Hematocrit 22.6 VOL% (42.0-52.0); Immature Granulocytes % 5.9 %; Lymphocytes # 0.5 10*3/uL (1.4-4.0); Mean Corpuscular HGB Conc 31.9 GM/DL (32-36); Mean Corpuscular Volume 98.3 FL (87-102); Mean Platelet Volume 10.5 FL (9.6-12.0); Monocytes # 1.5 10*3/uL (0.11-0.8); Neutrophils % 81.5 % (38.7-73.9); Platelet Count 129 T/CUMM (130-400); Red Cell Distribution Width 15.7 % (9.3-17.3); White Blood Count 16.9 T/CUMM (4-12)
[2021-11-14 04:56] LABS: Hemoglobin 7.2 GM/DL (14.0-18.0)
[2021-11-14 05:26] LABS: Band Neutrophils 2 % (0-10); Eosinophils 1 % (0-10); Lymphocytes 4 % (20-55); Platelet Estimate Adequate; Total Cells Counted 100
[2021-11-14 05:28] LABS: Acanthocytes 1+
[2021-11-14] MEDS ORDERED: SODIUM CHLORIDE 0.9% 1,000 ML IV PRN (07:15)
[2021-11-14] MEDS ORDERED: FUROSEMIDE 40 MG/4 ML VIAL IV ONE (07:20)
[2021-11-14] MEDS ORDERED: GLUCAGON 1 MG VIAL IM PRN (08:03)
[2021-11-14] MEDS ORDERED: DEXTROSE 10% 250 ML BAG IV PRN (08:14)
[2021-11-14] MEDS: ERTAPENEM 500 MG in SODIUM CHLORIDE 0.9% 100 ML IV SCH (10:00)
[2021-11-14] MEDS: OMEGA 3 ACID ETHYL ESTERS 1 GM CAPSULE PO SCH (10:12)
[2021-11-14] MEDS: ATORVASTATIN 40 MG TABLET PO SCH (10:12)
[2021-11-14] MEDS: DIGOXIN 0.125 MG TABLET PO SCH (10:12)
[2021-11-14] MEDS: CYANOCOBALAMIN 500 MCG TABLET PO SCH (10:12)
[2021-11-14] MEDS: LORATADINE 10 MG TABLET PO SCH (10:12)
[2021-11-14] MEDS: MULTIVITAMIN (CENTRUM) TABLET PO SCH (10:12)
[2021-11-14] MEDS: PANTOPRAZOLE 40 MG VIAL IV SCH (10:13)
[2021-11-14] MEDS: DILTIAZEM CD 180 MG CAPSULE PO SCH (10:13)
[2021-11-14] MEDS: ENOXAPARIN 30 MG/0.3 ML SYRINGE SUBCUT SCH (10:18)
[2021-11-14] MEDS: INSULIN GLARGINE 100 UNIT/ML SUBCUT SCH (10:19)
[2021-11-14] MEDS: ASPIRIN EC 81 MG TABLET PO SCH (11:39)
[2021-11-14 15:20] LABS: Hematocrit 26.6 VOL% (42.0-52.0); Hemoglobin 8.4 GM/DL (14.0-18.0)
[2021-11-14] MEDS: INSULIN LISPRO 100 UNIT/ML SUBCUT SCH ×3 (16:36→23:36)
[2021-11-14] MEDS: TAMSULOSIN 0.4 MG CAPSULE PO SCH (20:40)
[2021-11-15] MEDS: DEXTROSE 5% NACL 0.9% 1,000 ML IV SCH ×2 (02:15→12:21)
[2021-11-15 03:49] LABS: ABG Base Excess -11.2 MMOL/L (-2.5-2.5); ABG HCO3 15.5 MMOL/L (20-26); ABG Oxygen Saturation 96.6 % (95-100); ABG PCO2 40.5 MM HG (35-48); ABG PH 7.209 (7.35-7.45); ABG PO2 90.9 MM HG (80-95); ABG TCO2 15.3 MMOL/L (23-27)
[2021-11-15 03:49] LABS: Basophils % 0.1 % (0.0-0.8); Eosinophils % 0.1 % (0.00-10.9); Hematocrit 25.6 VOL% (42.0-52.0); Hemoglobin 8.2 GM/DL (14.0-18.0); Immature Granulocytes % 6.9 %; Lymphocytes # 0.6 10*3/uL (1.4-4.0); Lymphocytes % 2.7 % (21.2-54.2); Mean Corpuscular Volume 95.5 FL (87-102); Mean Platelet Volume 10.4 FL (9.6-12.0); Monocytes # 1.7 10*3/uL (0.11-0.8); Monocytes % 7.4 % (1.7-12.7); Neutrophils % 82.8 % (38.7-73.9); Platelet Count 183 T/CUMM (130-400); Red Blood Count 2.68 MC/CUMM (3.8-5.5); Red Cell Distribution Width 16.9 % (9.3-17.3); White Blood Count 23.1 T/CUMM (4-12)
[2021-11-15 04:07] LABS: Albumin 1.1 G/DL (3.4-5.0); Bilirubin,Total 0.6 MG/DL (0.20-1.00); Calcium 7.2 MG/DL (8.5-10.1); Osmolality,Calculated 291.5 MOS/KG (273-304); Total Protein 4.6 G/DL (6.4-8.2)
[2021-11-15 04:11] LABS: Acanthocytes Few; Eosinophils 1 % (0-10); Lymphocytes 3 % (20-55); Platelet Estimate Adequate; Total Cells Counted 100
[2021-11-15] MEDS: INSULIN LISPRO 100 UNIT/ML SUBCUT SCH ×3 (05:54→18:28)
[2021-11-15] MEDS: ASPIRIN CHEW 81 MG TABLET PO SCH (09:21)
[2021-11-15] MEDS: DILTIAZEM CD 180 MG CAPSULE PO SCH (09:22)
[2021-11-15] MEDS: ATORVASTATIN 40 MG TABLET PO SCH (09:22)
[2021-11-15] MEDS: INSULIN GLARGINE 100 UNIT/ML SUBCUT SCH (09:22)
[2021-11-15] MEDS: DIGOXIN 0.125 MG TABLET PO SCH (09:22)
[2021-11-15] MEDS: LORATADINE 10 MG TABLET PO SCH (09:22)
[2021-11-15] MEDS: MULTIVITAMIN (CENTRUM) TABLET PO SCH (09:22)
[2021-11-15] MEDS: CYANOCOBALAMIN 500 MCG TABLET PO SCH (09:23)
[2021-11-15] MEDS: OMEGA 3 ACID ETHYL ESTERS 1 GM CAPSULE PO SCH (09:23)
[2021-11-15] MEDS: PANTOPRAZOLE 40 MG VIAL IV SCH (09:23)
[2021-11-15] MEDS: ENOXAPARIN 30 MG/0.3 ML SYRINGE SUBCUT SCH (09:23)
[2021-11-15] MEDS: ERTAPENEM 500 MG in SODIUM CHLORIDE 0.9% 100 ML IV SCH (09:58)
[2021-11-15] MEDS ORDERED: FUROSEMIDE 100 MG/10 ML VIAL IV ONE (10:50)
[2021-11-15] MEDS ORDERED: INSULIN GLARGINE 100 UNIT/ML SUBCUT ONE (10:54)
[2021-11-15] MEDS ORDERED: FUROSEMIDE INJ 120 MG in SODIUM CHLORIDE 0.9% 50 ML IV ONE (11:00)
[2021-11-15] MEDS: ALBUTEROL/IPRATROPIUM 3 ML NEB RESP TX SCH ×2 (12:17→19:13)
[2021-11-15] MEDS: SODIUM BICARBONATE 650 MG TABLET PO SCH ×3 (12:39→21:42)
[2021-11-15] MEDS: TAMSULOSIN 0.4 MG CAPSULE PO SCH (21:42)
[2021-11-16] MEDS: ALBUTEROL/IPRATROPIUM 3 ML NEB RESP TX SCH ×4 (00:03→19:27)
[2021-11-16] MEDS: INSULIN LISPRO 100 UNIT/ML SUBCUT SCH ×5 (00:33→23:42)
[2021-11-16 04:55] LABS: ABG Base Excess -11.7 MMOL/L (-2.5-2.5); ABG HCO3 15.2 MMOL/L (20-26); ABG Oxygen Saturation 96.1 % (95-100); ABG PCO2 40.3 MM HG (35-48); ABG PO2 88.5 MM HG (80-95); ABG TCO2 14.9 MMOL/L (23-27)
[2021-11-16 04:59] LABS: Basophils # 0.1 10*3/uL (0.0-0.2); Basophils % 0.2 % (0.0-0.8); Eosinophils % 0.1 % (0.00-10.9); Hematocrit 26.9 VOL% (42.0-52.0); Hemoglobin 8.4 GM/DL (14.0-18.0); Immature Granulocytes % 7.5 %; Immature Granulocytes Absolute 1.57 #; Lymphocytes # 0.5 10*3/uL (1.4-4.0); Lymphocytes % 2.2 % (21.2-54.2); Mean Corpuscular HGB Conc 31.2 GM/DL (32-36); Mean Corpuscular Volume 96.4 FL (87-102); Mean Platelet Volume 10.2 FL (9.6-12.0); Monocytes # 1.6 10*3/uL (0.11-0.8); Monocytes % 7.4 % (1.7-12.7); Neutrophils % 82.6 % (38.7-73.9); Platelet Count 210 T/CUMM (130-400); Red Blood Count 2.79 MC/CUMM (3.8-5.5); Red Cell Distribution Width 16.8 % (9.3-17.3)
[2021-11-16 05:21] LABS: Albumin 1.2 G/DL (3.4-5.0); Bilirubin,Total 0.5 MG/DL (0.20-1.00); Calcium 8.4 MG/DL (8.5-10.1); Osmolality,Calculated 284.4 MOS/KG (273-304); Potassium 4.3 MMOL/L (3.5-5.1); Total Protein 5.2 G/DL (6.4-8.2)
[2021-11-16 05:31] LABS: Band Neutrophils 1 % (0-10); Lymphocytes 2 % (20-55); Platelet Estimate Adequate; Total Cells Counted 100
[2021-11-16] MEDS: DILTIAZEM CD 180 MG CAPSULE PO SCH (08:49)
[2021-11-16] MEDS: ASPIRIN CHEW 81 MG TABLET PO SCH (08:49)
[2021-11-16] MEDS: DIGOXIN 0.125 MG TABLET PO SCH (08:50)
[2021-11-16] MEDS: OMEGA 3 ACID ETHYL ESTERS 1 GM CAPSULE PO SCH (08:50)
[2021-11-16] MEDS: MULTIVITAMIN (CENTRUM) TABLET PO SCH (08:50)
[2021-11-16] MEDS: ATORVASTATIN 40 MG TABLET PO SCH (08:50)
[2021-11-16] MEDS: LORATADINE 10 MG TABLET PO SCH (08:50)
[2021-11-16] MEDS: PANTOPRAZOLE 40 MG VIAL IV SCH (08:51)
[2021-11-16] MEDS: ENOXAPARIN 30 MG/0.3 ML SYRINGE SUBCUT SCH (08:51)
[2021-11-16] MEDS: SODIUM BICARBONATE 650 MG TABLET PO SCH ×3 (08:51→21:22)
[2021-11-16] MEDS: CYANOCOBALAMIN 500 MCG TABLET PO SCH (08:52)
[2021-11-16] MEDS: HYDROmorphone 1 MG/1 ML SYRINGE IV PRN (08:54)
[2021-11-16] MEDS ORDERED: INSULIN GLARGINE 100 UNIT/ML SUBCUT SCH (09:00)
[2021-11-16] MEDS: ERTAPENEM 500 MG in SODIUM CHLORIDE 0.9% 100 ML IV SCH (09:40)
[2021-11-16] MEDS: METOCLOPRAMIDE 10 MG/2 ML VIAL IV SCH ×3 (11:41→21:22)
[2021-11-16] MEDS: TAMSULOSIN 0.4 MG CAPSULE PO SCH (21:22)
[2021-11-16] MEDS ORDERED: SODIUM BICARBONATE 50 MEQ/50 ML VIAL IV ONE (21:34)
[2021-11-16 21:43] LABS: ABG Base Excess -13.1 MMOL/L (-2.5-2.5); ABG HCO3 14.1 MMOL/L (20-26); ABG Oxygen Saturation 96.4 % (95-100); ABG PCO2 52.7 MM HG (35-48); ABG TCO2 15.9 MMOL/L (23-27)
[2021-11-16] MEDS ORDERED: DEXTROSE 50% 25 GM/50 ML SYRINGE IV ONE ×2 (21:43→21:44)
[2021-11-17] MEDS: ALBUTEROL/IPRATROPIUM 3 ML NEB RESP TX SCH ×4 (00:19→19:09)
[2021-11-17 01:00] LABS: ABG Base Excess -12.7 MMOL/L (-2.5-2.5); ABG HCO3 14.9 MMOL/L (20-26); ABG Oxygen Saturation 96.4 % (95-100); ABG PCO2 46.4 MM HG (35-48); ABG PO2 99.3 MM HG (80-95); ABG TCO2 14.6 MMOL/L (23-27)
[2021-11-17 01:02] LABS: ABG PH 7.165 (7.35-7.45)
[2021-11-17] MEDS ORDERED: SODIUM BICARBONATE 50 MEQ/50 ML VIAL IV ONE (01:11)
[2021-11-17] MEDS: METOCLOPRAMIDE 10 MG/2 ML VIAL IV SCH ×4 (03:51→21:15)
[2021-11-17 04:17] LABS: ABG Base Excess -9.3 MMOL/L (-2.5-2.5); ABG HCO3 16.9 MMOL/L (20-26); ABG Oxygen Saturation 98.3 % (95-100); ABG PCO2 39.7 MM HG (35-48); ABG PH 7.248 (7.35-7.45); ABG TCO2 16.4 MMOL/L (23-27)
[2021-11-17 04:29] LABS: Basophils % 0.1 % (0.0-0.8); Hematocrit 24.9 VOL% (42.0-52.0); Hemoglobin 7.9 GM/DL (14.0-18.0); Immature Granulocytes % 4.6 %; Immature Granulocytes Absolute 0.99 #; Lymphocytes # 0.3 10*3/uL (1.4-4.0); Lymphocytes % 1.4 % (21.2-54.2); Mean Corpuscular HGB Conc 31.7 GM/DL (32-36); Mean Platelet Volume 10.4 FL (9.6-12.0); Monocytes # 1.4 10*3/uL (0.11-0.8); Monocytes % 6.7 % (1.7-12.7); NRBC # 0.02 10*3/uL; Neutrophils % 87.2 % (38.7-73.9); Platelet Count 216 T/CUMM (130-400); Red Blood Count 2.62 MC/CUMM (3.8-5.5); Red Cell Distribution Width 16.6 % (9.3-17.3); White Blood Count 21.6 T/CUMM (4-12)
[2021-11-17 04:34] LABS: Albumin 1.2 G/DL (3.4-5.0); Bilirubin,Total 0.4 MG/DL (0.20-1.00); Calcium 8.6 MG/DL (8.5-10.1); Osmolality,Calculated 288.2 MOS/KG (273-304); Potassium 4.6 MMOL/L (3.5-5.1); Total Protein 5.2 G/DL (6.4-8.2)
[2021-11-17 04:50] LABS: Band Neutrophils 1 % (0-10); Lymphocytes 2 % (20-55); Platelet Estimate Adequate; Total Cells Counted 100
[2021-11-17] MEDS: INSULIN LISPRO 100 UNIT/ML SUBCUT SCH ×4 (05:00→23:23)
[2021-11-17] MEDS ORDERED: DEXTROSE 50% 25 GM/50 ML SYRINGE IV ONE ×3 (05:06→18:20)
[2021-11-17] MEDS: DILTIAZEM CD 180 MG CAPSULE PO SCH (08:05)
[2021-11-17] MEDS: ASPIRIN CHEW 81 MG TABLET PO SCH (08:05)
[2021-11-17] MEDS: MULTIVITAMIN (CENTRUM) TABLET PO SCH (08:06)
[2021-11-17] MEDS: DIGOXIN 0.125 MG TABLET PO SCH (08:06)
[2021-11-17] MEDS: OMEGA 3 ACID ETHYL ESTERS 1 GM CAPSULE PO SCH (08:06)
[2021-11-17] MEDS: ATORVASTATIN 40 MG TABLET PO SCH (08:06)
[2021-11-17] MEDS: LORATADINE 10 MG TABLET PO SCH (08:06)
[2021-11-17] MEDS: PANTOPRAZOLE 40 MG VIAL IV SCH (08:07)
[2021-11-17] MEDS: SODIUM BICARBONATE 650 MG TABLET PO SCH ×3 (08:07→21:16)
[2021-11-17] MEDS: CYANOCOBALAMIN 500 MCG TABLET PO SCH (08:07)
[2021-11-17] MEDS: ENOXAPARIN 30 MG/0.3 ML SYRINGE SUBCUT SCH (08:07)
[2021-11-17] MEDS: ERTAPENEM 500 MG in SODIUM CHLORIDE 0.9% 100 ML IV SCH (08:56)
[2021-11-17] MEDS ORDERED: DEXTROSE 10% 250 ML BAG IV PRN (11:38)
[2021-11-17] MEDS ORDERED: FUROSEMIDE 40 MG/4 ML VIAL IV ONE (14:27)
[2021-11-17] MEDS ORDERED: FUROSEMIDE 40 MG/4 ML VIAL ONE (14:39)
[2021-11-17 14:40] LABS: ABG Base Excess -9.3 MMOL/L (-2.5-2.5); ABG HCO3 16.9 MMOL/L (20-26); ABG Oxygen Saturation 94.8 % (95-100); ABG PCO2 41.1 MM HG (35-48); ABG PO2 81.7 MM HG (80-95); ABG TCO2 16.7 MMOL/L (23-27)
[2021-11-17] MEDS: HYDROmorphone 1 MG/1 ML SYRINGE IV PRN (16:09)
[2021-11-17 18:17] LABS: Hepatitis B Core IgM Quant 0.08 Index; Hepatitis B Surface Ag Quant < 0.10 Index; Hepatitis B Surface Ag Result Non-Reactive (NonReactive); Hepatitis C Virus Ab Result Non-Reactive (NonReactive)
[2021-11-17] MEDS ORDERED: DEXTROSE 50% 25 GM/50 ML SYRINGE IV PRN (19:00)
[2021-11-17] MEDS ORDERED: HEPARIN 10,000 UNIT/10 ML VIAL IV SCH (20:30)
[2021-11-17] MEDS: TAMSULOSIN 0.4 MG CAPSULE PO SCH (21:16)
[2021-11-18] MEDS: ALBUTEROL/IPRATROPIUM 3 ML NEB RESP TX SCH ×4 (01:08→19:00)
[2021-11-18 04:42] LABS: ABG Base Excess -6.2 MMOL/L (-2.5-2.5); ABG HCO3 19.3 MMOL/L (20-26); ABG Oxygen Saturation 99.7 % (95-100); ABG PCO2 43.2 MM HG (35-48); ABG PH 7.279 (7.35-7.45); ABG TCO2 19.1 MMOL/L (23-27)
[2021-11-18 04:46] LABS: Basophils % 0.1 % (0.0-0.8); Eosinophils % 0.1 % (0.00-10.9); Hemoglobin 7.7 GM/DL (14.0-18.0); Immature Granulocytes % 2.5 %; Immature Granulocytes Absolute 0.49 #; Lymphocytes # 0.3 10*3/uL (1.4-4.0); Lymphocytes % 1.3 % (21.2-54.2); Mean Corpuscular HGB Conc 32.1 GM/DL (32-36); Mean Corpuscular Volume 94.9 FL (87-102); Mean Platelet Volume 10.3 FL (9.6-12.0); Monocytes # 1.3 10*3/uL (0.11-0.8); Monocytes % 6.6 % (1.7-12.7); Neutrophils % 89.4 % (38.7-73.9); Platelet Count 209 T/CUMM (130-400); Red Blood Count 2.53 MC/CUMM (3.8-5.5); Red Cell Distribution Width 16.3 % (9.3-17.3); White Blood Count 19.4 T/CUMM (4-12)
[2021-11-18] MEDS: METOCLOPRAMIDE 10 MG/2 ML VIAL IV SCH ×4 (04:50→21:30)
[2021-11-18 05:04] LABS: Albumin 1.2 G/DL (3.4-5.0); Bilirubin,Total 0.5 MG/DL (0.20-1.00); Calcium 8.3 MG/DL (8.5-10.1); Osmolality,Calculated 294.5 MOS/KG (273-304); Potassium 4.6 MMOL/L (3.5-5.1); Total Protein 5.3 G/DL (6.4-8.2)
[2021-11-18 05:07] LABS: Eosinophils 1 % (0-10); Lymphocytes 2 % (20-55); Platelet Estimate Adequate; Total Cells Counted 100
[2021-11-18] MEDS: HYDROmorphone 1 MG/1 ML SYRINGE IV PRN (05:46)
[2021-11-18] MEDS: INSULIN LISPRO 100 UNIT/ML SUBCUT SCH ×3 (06:03→18:07)
[2021-11-18] MEDS: MULTIVITAMIN (CENTRUM) TABLET PO SCH (08:21)
[2021-11-18] MEDS: ASPIRIN CHEW 81 MG TABLET PO SCH (08:21)
[2021-11-18] MEDS: ENOXAPARIN 30 MG/0.3 ML SYRINGE SUBCUT SCH (08:21)
[2021-11-18] MEDS: ATORVASTATIN 40 MG TABLET PO SCH (08:21)
[2021-11-18] MEDS: LORATADINE 10 MG TABLET PO SCH (08:21)
[2021-11-18] MEDS: SODIUM BICARBONATE 650 MG TABLET PO SCH ×3 (08:21→21:30)
[2021-11-18] MEDS: OMEGA 3 ACID ETHYL ESTERS 1 GM CAPSULE PO SCH (08:21)
[2021-11-18] MEDS: CYANOCOBALAMIN 500 MCG TABLET PO SCH (08:21)
[2021-11-18] MEDS: PANTOPRAZOLE 40 MG VIAL IV SCH (08:22)
[2021-11-18] MEDS: DIGOXIN 0.125 MG TABLET PO SCH (08:22)
[2021-11-18] MEDS: DILTIAZEM 30 MG TABLET PO SCH ×3 (08:25→21:29)
[2021-11-18] MEDS: ERTAPENEM 500 MG in SODIUM CHLORIDE 0.9% 100 ML IV SCH (09:52)
[2021-11-18] MEDS: TAMSULOSIN 0.4 MG CAPSULE PO SCH (21:29)
[2021-11-19] MEDS: INSULIN LISPRO 100 UNIT/ML SUBCUT SCH ×4 (00:19→19:35)
[2021-11-19] MEDS: ALBUTEROL/IPRATROPIUM 3 ML NEB RESP TX SCH ×4 (01:09→19:55)
[2021-11-19 03:10] LABS: ABG Base Excess -3.7 MMOL/L (-2.5-2.5); ABG HCO3 21.4 MMOL/L (20-26); ABG Oxygen Saturation 98.7 % (95-100); ABG PCO2 43.7 MM HG (35-48); ABG PH 7.316 (7.35-7.45); ABG TCO2 21.1 MMOL/L (23-27); Basophils % 0.1 % (0.0-0.8); Eosinophils % 0.1 % (0.00-10.9); Hematocrit 28.5 VOL% (42.0-52.0); Hemoglobin 9.2 GM/DL (14.0-18.0); Immature Granulocytes % 1.8 %; Immature Granulocytes Absolute 0.26 #; Lymphocytes # 0.4 10*3/uL (1.4-4.0); Lymphocytes % 2.5 % (21.2-54.2); Mean Corpuscular HGB Conc 32.3 GM/DL (32-36); Mean Corpuscular Volume 94.1 FL (87-102); Mean Platelet Volume 9.9 FL (9.6-12.0); Monocytes % 6.7 % (1.7-12.7); Neutrophils % 88.8 % (38.7-73.9); Platelet Count 208 T/CUMM (130-400); Red Blood Count 3.03 MC/CUMM (3.8-5.5); Red Cell Distribution Width 15.9 % (9.3-17.3); White Blood Count 14.6 T/CUMM (4-12)
[2021-11-19] MEDS: DILTIAZEM 30 MG TABLET PO SCH ×4 (03:14→21:07)
[2021-11-19] MEDS: METOCLOPRAMIDE 10 MG/2 ML VIAL IV SCH ×4 (03:14→21:06)
[2021-11-19 03:25] LABS: Calcium 8.5 MG/DL (8.5-10.1); Osmolality,Calculated 294.4 MOS/KG (273-304); Phosphorous 6.9 MG/DL (2.5-4.9); Potassium 4.3 MMOL/L (3.5-5.1)
[2021-11-19 03:32] LABS: Lymphocytes 1 % (20-55); Platelet Estimate Adequate; Total Cells Counted 100
[2021-11-19] MEDS: SODIUM BICARBONATE 650 MG TABLET PO SCH ×3 (08:39→21:06)
[2021-11-19] MEDS: MULTIVITAMIN (CENTRUM) TABLET PO SCH (08:39)
[2021-11-19] MEDS: ENOXAPARIN 30 MG/0.3 ML SYRINGE SUBCUT SCH (08:39)
[2021-11-19] MEDS: CYANOCOBALAMIN 500 MCG TABLET PO SCH (08:40)
[2021-11-19] MEDS: LORATADINE 10 MG TABLET PO SCH (08:40)
[2021-11-19] MEDS: ASPIRIN CHEW 81 MG TABLET PO SCH (08:40)
[2021-11-19] MEDS: ATORVASTATIN 40 MG TABLET PO SCH (08:40)
[2021-11-19] MEDS: OMEGA 3 ACID ETHYL ESTERS 1 GM CAPSULE PO SCH (08:40)
[2021-11-19] MEDS: PANTOPRAZOLE 40 MG VIAL IV SCH (08:41)
[2021-11-19] MEDS: HYDROmorphone 1 MG/1 ML SYRINGE IV PRN ×2 (08:51→17:11)
[2021-11-19] MEDS: ERTAPENEM 500 MG in SODIUM CHLORIDE 0.9% 100 ML IV SCH (09:51)
[2021-11-19] MEDS: TAMSULOSIN 0.4 MG CAPSULE PO SCH (21:07)
[2021-11-20] MEDS: ALBUTEROL/IPRATROPIUM 3 ML NEB RESP TX SCH ×4 (00:02→19:34)
[2021-11-20] MEDS: INSULIN LISPRO 100 UNIT/ML SUBCUT SCH ×4 (00:13→17:47)
[2021-11-20] MEDS: HYDROmorphone 1 MG/1 ML SYRINGE IV PRN ×4 (01:13→22:43)
[2021-11-20] MEDS: DILTIAZEM 30 MG TABLET PO SCH ×4 (03:06→21:07)
[2021-11-20] MEDS: METOCLOPRAMIDE 10 MG/2 ML VIAL IV SCH ×4 (03:06→21:07)
[2021-11-20 03:49] LABS: Basophils % 0.1 % (0.0-0.8); Eosinophils % 0.2 % (0.00-10.9); Hematocrit 25.4 VOL% (42.0-52.0); Immature Granulocytes % 1.2 %; Immature Granulocytes Absolute 0.18 #; Lymphocytes # 0.4 10*3/uL (1.4-4.0); Lymphocytes % 2.8 % (21.2-54.2); Mean Corpuscular HGB Conc 31.5 GM/DL (32-36); Mean Corpuscular Volume 94.8 FL (87-102); Monocytes # 1.1 10*3/uL (0.11-0.8); Monocytes % 7.3 % (1.7-12.7); Neutrophils % 88.4 % (38.7-73.9); Platelet Count 246 T/CUMM (130-400); Red Blood Count 2.68 MC/CUMM (3.8-5.5); Red Cell Distribution Width 15.6 % (9.3-17.3); White Blood Count 15.1 T/CUMM (4-12)
[2021-11-20 03:50] LABS: ABG Base Excess -0.6 MMOL/L (-2.5-2.5); ABG Oxygen Saturation 99.2 % (95-100); ABG PCO2 51.3 MM HG (35-48); ABG PH 7.312 (7.35-7.45); ABG TCO2 24.5 MMOL/L (23-27)
[2021-11-20 04:03] LABS: Calcium 8.1 MG/DL (8.5-10.1); Osmolality,Calculated 293.1 MOS/KG (273-304); Potassium 4.1 MMOL/L (3.5-5.1)
[2021-11-20 04:08] LABS: Lymphocytes 3 % (20-55); Platelet Estimate Adequate; Total Cells Counted 100
[2021-11-20] MEDS: ENOXAPARIN 30 MG/0.3 ML SYRINGE SUBCUT SCH (08:25)
[2021-11-20] MEDS: LORATADINE 10 MG TABLET PO SCH (08:26)
[2021-11-20] MEDS: CYANOCOBALAMIN 500 MCG TABLET PO SCH (08:26)
[2021-11-20] MEDS: ASPIRIN CHEW 81 MG TABLET PO SCH (08:26)
[2021-11-20] MEDS: MULTIVITAMIN (CENTRUM) TABLET PO SCH (08:26)
[2021-11-20] MEDS: SODIUM BICARBONATE 650 MG TABLET PO SCH (08:26)
[2021-11-20] MEDS: OMEGA 3 ACID ETHYL ESTERS 1 GM CAPSULE PO SCH (08:26)
[2021-11-20] MEDS: ATORVASTATIN 40 MG TABLET PO SCH (08:26)
[2021-11-20] MEDS: PANTOPRAZOLE 40 MG VIAL IV SCH (08:27)
[2021-11-20] MEDS: ERTAPENEM 500 MG in SODIUM CHLORIDE 0.9% 100 ML IV SCH (13:24)
[2021-11-20] MEDS: FUROSEMIDE 40 MG/4 ML VIAL IV SCH ×2 (13:24→18:24)
[2021-11-20] MEDS: TAMSULOSIN 0.4 MG CAPSULE PO SCH (21:07)
[2021-11-21] MEDS: FUROSEMIDE 40 MG/4 ML VIAL IV SCH ×2 (00:11→06:09)
[2021-11-21] MEDS: INSULIN LISPRO 100 UNIT/ML SUBCUT SCH ×4 (00:14→17:27)
[2021-11-21] MEDS: ALBUTEROL/IPRATROPIUM 3 ML NEB RESP TX SCH ×4 (00:15→19:50)
[2021-11-21] MEDS: HYDROmorphone 1 MG/1 ML SYRINGE IV PRN ×5 (03:28→22:50)
[2021-11-21] MEDS: DILTIAZEM 30 MG TABLET PO SCH ×4 (04:14→20:36)
[2021-11-21] MEDS: METOCLOPRAMIDE 10 MG/2 ML VIAL IV SCH ×4 (04:14→21:12)
[2021-11-21 04:26] LABS: ABG Base Excess -1.6 MMOL/L (-2.5-2.5); ABG HCO3 23.1 MMOL/L (20-26); ABG Oxygen Saturation 99.1 % (95-100); ABG PCO2 48.8 MM HG (35-48); ABG PH 7.312 (7.35-7.45); ABG TCO2 23.4 MMOL/L (23-27)
[2021-11-21 04:27] LABS: Basophils % 0.1 % (0.0-0.8); Eosinophils % 0.2 % (0.00-10.9); Hemoglobin 7.3 GM/DL (14.0-18.0); Immature Granulocytes % 1.3 %; Immature Granulocytes Absolute 0.19 #; Lymphocytes # 0.5 10*3/uL (1.4-4.0); Lymphocytes % 3.6 % (21.2-54.2); Mean Corpuscular HGB Conc 31.7 GM/DL (32-36); Mean Corpuscular Volume 95.8 FL (87-102); Mean Platelet Volume 10.2 FL (9.6-12.0); Monocytes # 0.9 10*3/uL (0.11-0.8); Monocytes % 6.4 % (1.7-12.7); Neutrophils % 88.4 % (38.7-73.9); Platelet Count 253 T/CUMM (130-400); Red Cell Distribution Width 15.4 % (9.3-17.3); White Blood Count 14.6 T/CUMM (4-12)
[2021-11-21 04:45] LABS: Calcium 8.6 MG/DL (8.5-10.1); Osmolality,Calculated 302.4 MOS/KG (273-304)
[2021-11-21 04:46] LABS: Lymphocytes 2 % (20-55); Total Cells Counted 100
[2021-11-21] MEDS: ENOXAPARIN 30 MG/0.3 ML SYRINGE SUBCUT SCH ×2 (08:55→09:50)
[2021-11-21] MEDS: PANTOPRAZOLE 40 MG VIAL IV SCH (08:55)
[2021-11-21] MEDS: ASPIRIN CHEW 81 MG TABLET PO SCH (08:56)
[2021-11-21] MEDS: CYANOCOBALAMIN 500 MCG TABLET PO SCH (08:57)
[2021-11-21] MEDS: OMEGA 3 ACID ETHYL ESTERS 1 GM CAPSULE PO SCH (08:57)
[2021-11-21] MEDS: MULTIVITAMIN (CENTRUM) TABLET PO SCH (08:57)
[2021-11-21] MEDS: LORATADINE 10 MG TABLET PO SCH (08:58)
[2021-11-21] MEDS: ATORVASTATIN 40 MG TABLET PO SCH (08:58)
[2021-11-21] MEDS: ERTAPENEM 500 MG in SODIUM CHLORIDE 0.9% 100 ML IV SCH (12:00)
[2021-11-21] MEDS ORDERED: HYDROmorphone 1 MG/1 ML SYRINGE IV ONE (13:25)
[2021-11-21] MEDS: SODIUM HYPOCHLORITE 0.25% IRRIG 473 ML BOTTLE TOP SCH (13:54)
[2021-11-21] MEDS: TAMSULOSIN 0.4 MG CAPSULE PO SCH (20:37)
[2021-11-21] MEDS: DESITIN 4OZ/NYSTATIN 15 GRAM MIXTURE PASTE TOP SCH (20:37)
[2021-11-22] MEDS: ALBUTEROL/IPRATROPIUM 3 ML NEB RESP TX SCH ×4 (00:50→19:43)
[2021-11-22] MEDS: INSULIN LISPRO 100 UNIT/ML SUBCUT SCH ×5 (00:57→23:46)
[2021-11-22] MEDS: DILTIAZEM 30 MG TABLET PO SCH ×4 (02:40→21:02)
[2021-11-22] MEDS: METOCLOPRAMIDE 10 MG/2 ML VIAL IV SCH ×4 (03:48→21:02)
[2021-11-22 04:09] LABS: Basophils % 0.1 % (0.0-0.8); Eosinophils # 0.1 10*3/uL (0.0-0.87); Eosinophils % 0.6 % (0.00-10.9); Hematocrit 22.6 VOL% (42.0-52.0); Hemoglobin 7.1 GM/DL (14.0-18.0); Immature Granulocytes Absolute 0.16 #; Lymphocytes # 0.5 10*3/uL (1.4-4.0); Lymphocytes % 2.9 % (21.2-54.2); Mean Corpuscular HGB Conc 31.4 GM/DL (32-36); Mean Platelet Volume 10.2 FL (9.6-12.0); Monocytes # 1.1 10*3/uL (0.11-0.8); Monocytes % 6.9 % (1.7-12.7); Neutrophils % 88.5 % (38.7-73.9); Platelet Count 264 T/CUMM (130-400); Red Blood Count 2.33 MC/CUMM (3.8-5.5); Red Cell Distribution Width 15.5 % (9.3-17.3)
[2021-11-22 04:21] LABS: Calcium 8.3 MG/DL (8.5-10.1); Osmolality,Calculated 310.1 MOS/KG (273-304); Potassium 3.9 MMOL/L (3.5-5.1)
[2021-11-22 04:38] LABS: Lymphocytes 5 % (20-55); Platelet Estimate Normal; Total Cells Counted 100
[2021-11-22] MEDS: HYDROmorphone 1 MG/1 ML SYRINGE IV PRN ×5 (05:43→22:10)
[2021-11-22] MEDS: PANTOPRAZOLE 40 MG VIAL IV SCH (08:34)
[2021-11-22] MEDS: ENOXAPARIN 30 MG/0.3 ML SYRINGE SUBCUT SCH (08:34)
[2021-11-22] MEDS: CYANOCOBALAMIN 500 MCG TABLET PO SCH (08:35)
[2021-11-22] MEDS: ATORVASTATIN 40 MG TABLET PO SCH (08:35)
[2021-11-22] MEDS: OMEGA 3 ACID ETHYL ESTERS 1 GM CAPSULE PO SCH (08:35)
[2021-11-22] MEDS: ASPIRIN CHEW 81 MG TABLET PO SCH (08:35)
[2021-11-22] MEDS: LORATADINE 10 MG TABLET PO SCH (08:35)
[2021-11-22] MEDS: MULTIVITAMIN (CENTRUM) TABLET PO SCH (08:35)
[2021-11-22] MEDS: DESITIN 4OZ/NYSTATIN 15 GRAM MIXTURE PASTE TOP SCH ×2 (08:37→21:02)
[2021-11-22] MEDS: SODIUM HYPOCHLORITE 0.25% IRRIG 473 ML BOTTLE TOP SCH (08:37)
[2021-11-22] MEDS ORDERED: SODIUM CHLORIDE 0.9% 1,000 ML IV PRN (11:11)
[2021-11-22] MEDS: ERTAPENEM 500 MG in SODIUM CHLORIDE 0.9% 100 ML IV SCH (12:44)
[2021-11-22 18:47] LABS: Hematocrit 26.5 VOL% (42.0-52.0); Hemoglobin 8.4 GM/DL (14.0-18.0)
[2021-11-22] MEDS: TAMSULOSIN 0.4 MG CAPSULE PO SCH (21:02)
[2021-11-23] MEDS: ALBUTEROL/IPRATROPIUM 3 ML NEB RESP TX SCH ×4 (00:37→19:25)
[2021-11-23] MEDS: DILTIAZEM 30 MG TABLET PO SCH ×4 (02:43→20:08)
[2021-11-23] MEDS: METOCLOPRAMIDE 10 MG/2 ML VIAL IV SCH ×4 (03:31→21:37)
[2021-11-23] MEDS: HYDROmorphone 1 MG/1 ML SYRINGE IV PRN ×4 (03:58→20:14)
[2021-11-23 05:04] LABS: Basophils % 0.2 % (0.0-0.8); Eosinophils # 0.1 10*3/uL (0.0-0.87); Eosinophils % 0.4 % (0.00-10.9); Hematocrit 27.2 VOL% (42.0-52.0); Hemoglobin 8.6 GM/DL (14.0-18.0); Immature Granulocytes % 1.6 %; Immature Granulocytes Absolute 0.22 #; Lymphocytes # 0.4 10*3/uL (1.4-4.0); Lymphocytes % 3.1 % (21.2-54.2); Mean Corpuscular HGB Conc 31.6 GM/DL (32-36); Mean Corpuscular Volume 94.1 FL (87-102); Mean Platelet Volume 10.3 FL (9.6-12.0); Monocytes # 1.1 10*3/uL (0.11-0.8); Monocytes % 7.8 % (1.7-12.7); Neutrophils % 86.9 % (38.7-73.9); Platelet Count 288 T/CUMM (130-400); Red Blood Count 2.89 MC/CUMM (3.8-5.5); White Blood Count 14.2 T/CUMM (4-12)
[2021-11-23 05:20] LABS: Calcium 8.1 MG/DL (8.5-10.1); Osmolality,Calculated 325.8 MOS/KG (273-304); Potassium 4.3 MMOL/L (3.5-5.1)
[2021-11-23] MEDS: INSULIN LISPRO 100 UNIT/ML SUBCUT SCH ×4 (05:27→23:43)
[2021-11-23 05:36] LABS: Anisocytosis Slight; Band Neutrophils 4 % (0-10); Eosinophils 1 % (0-10); Lymphocytes 3 % (20-55); Platelet Estimate Normal; Total Cells Counted 100
[2021-11-23 05:37] LABS: Macrocytosis Slight
[2021-11-23] MEDS ORDERED: FUROSEMIDE 40 MG/4 ML VIAL IV ONE (08:45)
[2021-11-23] MEDS ORDERED: ALBUMIN 25% 25 GM/100 ML VIAL IV ONE (08:45)
[2021-11-23] MEDS: ENOXAPARIN 30 MG/0.3 ML SYRINGE SUBCUT SCH (08:55)
[2021-11-23] MEDS: ASPIRIN CHEW 81 MG TABLET PO SCH (08:55)
[2021-11-23] MEDS: MULTIVITAMIN (CENTRUM) TABLET PO SCH (08:55)
[2021-11-23] MEDS: PANTOPRAZOLE 40 MG VIAL IV SCH (08:55)
[2021-11-23] MEDS: OMEGA 3 ACID ETHYL ESTERS 1 GM CAPSULE PO SCH (08:56)
[2021-11-23] MEDS: ATORVASTATIN 40 MG TABLET PO SCH (08:56)
[2021-11-23] MEDS: LORATADINE 10 MG TABLET PO SCH (09:43)
[2021-11-23] MEDS: CYANOCOBALAMIN 500 MCG TABLET PO SCH (09:44)
[2021-11-23] MEDS: DESITIN 4OZ/NYSTATIN 15 GRAM MIXTURE PASTE TOP SCH ×2 (09:49→20:09)
[2021-11-23] MEDS: SODIUM HYPOCHLORITE 0.25% IRRIG 473 ML BOTTLE TOP SCH (09:49)
[2021-11-23] MEDS: INSULIN GLARGINE 100 UNIT/ML SUBCUT SCH (10:13)
[2021-11-23] MEDS: ERTAPENEM 500 MG in SODIUM CHLORIDE 0.9% 100 ML IV SCH (12:17)
[2021-11-23] MEDS: TAMSULOSIN 0.4 MG CAPSULE PO SCH (20:09)
[2021-11-24] MEDS: ALBUTEROL/IPRATROPIUM 3 ML NEB RESP TX SCH ×4 (00:25→18:50)
[2021-11-24] MEDS: DILTIAZEM 30 MG TABLET PO SCH ×4 (02:38→20:20)
[2021-11-24 03:45] LABS: Basophils % 0.2 % (0.0-0.8); Eosinophils # 0.1 10*3/uL (0.0-0.87); Eosinophils % 0.7 % (0.00-10.9); Hematocrit 25.9 VOL% (42.0-52.0); Hemoglobin 8.1 GM/DL (14.0-18.0); Immature Granulocytes % 1.3 %; Immature Granulocytes Absolute 0.13 #; Lymphocytes # 0.3 10*3/uL (1.4-4.0); Lymphocytes % 3.1 % (21.2-54.2); Mean Corpuscular HGB Conc 31.3 GM/DL (32-36); Mean Corpuscular Volume 95.6 FL (87-102); Mean Platelet Volume 10.4 FL (9.6-12.0); Monocytes # 1.1 10*3/uL (0.11-0.8); Monocytes % 11.1 % (1.7-12.7); Neutrophils % 83.6 % (38.7-73.9); Platelet Count 265 T/CUMM (130-400); Red Blood Count 2.71 MC/CUMM (3.8-5.5); White Blood Count 10.3 T/CUMM (4-12)
[2021-11-24] MEDS: METOCLOPRAMIDE 10 MG/2 ML VIAL IV SCH ×4 (04:06→21:02)
[2021-11-24] MEDS: HYDROmorphone 1 MG/1 ML SYRINGE IV PRN ×2 (04:06→11:18)
[2021-11-24 04:07] LABS: Calcium 8.3 MG/DL (8.5-10.1); Osmolality,Calculated 334.4 MOS/KG (273-304); Potassium 4.1 MMOL/L (3.5-5.1)
[2021-11-24] MEDS: INSULIN LISPRO 100 UNIT/ML SUBCUT SCH ×4 (05:36→23:16)
[2021-11-24] MEDS: SODIUM HYPOCHLORITE 0.25% IRRIG 473 ML BOTTLE TOP SCH (09:30)
[2021-11-24] MEDS ORDERED: ALBUMIN 25% 25 GM/100 ML VIAL IV ONE (09:54)
[2021-11-24] MEDS: LORATADINE 10 MG TABLET PO SCH (10:10)
[2021-11-24] MEDS: MULTIVITAMIN (CENTRUM) TABLET PO SCH (10:10)
[2021-11-24] MEDS: OMEGA 3 ACID ETHYL ESTERS 1 GM CAPSULE PO SCH (10:10)
[2021-11-24] MEDS: CYANOCOBALAMIN 500 MCG TABLET PO SCH (10:10)
[2021-11-24] MEDS: DESITIN 4OZ/NYSTATIN 15 GRAM MIXTURE PASTE TOP SCH ×2 (10:10→20:21)
[2021-11-24] MEDS: ATORVASTATIN 40 MG TABLET PO SCH (10:10)
[2021-11-24] MEDS: PANTOPRAZOLE 40 MG VIAL IV SCH (10:10)
[2021-11-24] MEDS: ASPIRIN CHEW 81 MG TABLET PO SCH (10:10)
[2021-11-24] MEDS: INSULIN GLARGINE 100 UNIT/ML SUBCUT SCH (10:10)
[2021-11-24] MEDS: ENOXAPARIN 30 MG/0.3 ML SYRINGE SUBCUT SCH (10:15)
[2021-11-24] MEDS: TAMSULOSIN 0.4 MG CAPSULE PO SCH (20:21)
[2021-11-25] MEDS: DILTIAZEM 30 MG TABLET PO SCH ×4 (02:19→20:00)
[2021-11-25] MEDS: METOCLOPRAMIDE 10 MG/2 ML VIAL IV SCH ×4 (03:28→21:05)
[2021-11-25 03:38] LABS: Basophils % 0.3 % (0.0-0.8); Eosinophils # 0.1 10*3/uL (0.0-0.87); Eosinophils % 1.3 % (0.00-10.9); Hematocrit 25.4 VOL% (42.0-52.0); Hemoglobin 7.7 GM/DL (14.0-18.0); Immature Granulocytes % 3.1 %; Immature Granulocytes Absolute 0.12 #; Lymphocytes # 0.3 10*3/uL (1.4-4.0); Lymphocytes % 6.6 % (21.2-54.2); Mean Corpuscular HGB Conc 30.3 GM/DL (32-36); Mean Corpuscular Volume 96.9 FL (87-102); Mean Platelet Volume 10.4 FL (9.6-12.0); Monocytes # 0.9 10*3/uL (0.11-0.8); Monocytes % 21.9 % (1.7-12.7); Neutrophils % 66.8 % (38.7-73.9); Platelet Count 255 T/CUMM (130-400); Red Blood Count 2.62 MC/CUMM (3.8-5.5); Red Cell Distribution Width 15.8 % (9.3-17.3); White Blood Count 3.9 T/CUMM (4-12)
[2021-11-25 03:57] LABS: Eosinophils 1 % (0-10); Lymphocytes 4 % (20-55); Platelet Estimate Adequate; Total Cells Counted 100
[2021-11-25 03:58] LABS: Hypochromia Slight
[2021-11-25 04:00] LABS: Calcium 8.5 MG/DL (8.5-10.1); Osmolality,Calculated 336.3 MOS/KG (273-304); Potassium 4.1 MMOL/L (3.5-5.1)
[2021-11-25] MEDS: INSULIN LISPRO 100 UNIT/ML SUBCUT SCH ×4 (05:57→23:26)
[2021-11-25] MEDS: ALBUTEROL/IPRATROPIUM 3 ML NEB RESP TX SCH ×3 (07:09→19:08)
[2021-11-25] MEDS: ATORVASTATIN 40 MG TABLET PO SCH (09:26)
[2021-11-25] MEDS: MULTIVITAMIN (CENTRUM) TABLET PO SCH (09:26)
[2021-11-25] MEDS: INSULIN GLARGINE 100 UNIT/ML SUBCUT SCH (09:26)
[2021-11-25] MEDS: ASPIRIN CHEW 81 MG TABLET PO SCH (09:26)
[2021-11-25] MEDS: LORATADINE 10 MG TABLET PO SCH (09:26)
[2021-11-25] MEDS: ENOXAPARIN 30 MG/0.3 ML SYRINGE SUBCUT SCH (09:26)
[2021-11-25] MEDS: CYANOCOBALAMIN 500 MCG TABLET PO SCH (09:26)
[2021-11-25] MEDS: OMEGA 3 ACID ETHYL ESTERS 1 GM CAPSULE PO SCH (09:26)
[2021-11-25] MEDS: DESITIN 4OZ/NYSTATIN 15 GRAM MIXTURE PASTE TOP SCH ×2 (09:27→20:01)
[2021-11-25] MEDS: SODIUM HYPOCHLORITE 0.25% IRRIG 473 ML BOTTLE TOP SCH (09:27)
[2021-11-25] MEDS: PANTOPRAZOLE 40 MG VIAL IV SCH (09:27)
[2021-11-25] MEDS: HYDROmorphone 1 MG/1 ML SYRINGE IV PRN ×3 (11:28→20:10)
[2021-11-25] MEDS: TAMSULOSIN 0.4 MG CAPSULE PO SCH (20:01)
[2021-11-26] MEDS: ALBUTEROL/IPRATROPIUM 3 ML NEB RESP TX SCH ×5 (00:15→19:25)
[2021-11-26] MEDS: DILTIAZEM 30 MG TABLET PO SCH ×4 (01:37→20:23)
[2021-11-26] MEDS: METOCLOPRAMIDE 10 MG/2 ML VIAL IV SCH ×4 (03:30→21:02)
[2021-11-26 03:34] LABS: Eosinophils # 0.1 10*3/uL (0.0-0.87); Eosinophils % 1.5 % (0.00-10.9); Hematocrit 27.9 VOL% (42.0-52.0); Hemoglobin 8.3 GM/DL (14.0-18.0); Immature Granulocytes % 1.8 %; Immature Granulocytes Absolute 0.06 #; Lymphocytes # 0.3 10*3/uL (1.4-4.0); Lymphocytes % 8.2 % (21.2-54.2); Mean Corpuscular HGB Conc 29.7 GM/DL (32-36); Mean Platelet Volume 10.4 FL (9.6-12.0); Monocytes # 0.9 10*3/uL (0.11-0.8); Monocytes % 28.6 % (1.7-12.7); Neutrophils % 59.9 % (38.7-73.9); Platelet Count 257 T/CUMM (130-400); Red Blood Count 2.79 MC/CUMM (3.8-5.5); Red Cell Distribution Width 15.8 % (9.3-17.3); White Blood Count 3.3 T/CUMM (4-12)
[2021-11-26 03:49] LABS: Calcium 8.6 MG/DL (8.5-10.1); Potassium 4.2 MMOL/L (3.5-5.1)
[2021-11-26 03:55] LABS: Band Neutrophils 2 % (0-10); Eosinophils 2 % (0-10); Hypochromia Slight; Lymphocytes 4 % (20-55); Platelet Estimate Adequate; Total Cells Counted 100
[2021-11-26] MEDS: INSULIN LISPRO 100 UNIT/ML SUBCUT SCH ×3 (05:42→18:04)
[2021-11-26] MEDS ORDERED: FUROSEMIDE 40 MG/4 ML VIAL IV ONE (07:01)
[2021-11-26] MEDS: INSULIN GLARGINE 100 UNIT/ML SUBCUT SCH (09:04)
[2021-11-26] MEDS: LORATADINE 10 MG TABLET PO SCH (09:04)
[2021-11-26] MEDS: ENOXAPARIN 30 MG/0.3 ML SYRINGE SUBCUT SCH (09:04)
[2021-11-26] MEDS: CYANOCOBALAMIN 500 MCG TABLET PO SCH (09:04)
[2021-11-26] MEDS: PANTOPRAZOLE 40 MG VIAL IV SCH (09:05)
[2021-11-26] MEDS: ASPIRIN CHEW 81 MG TABLET PO SCH (09:05)
[2021-11-26] MEDS: ATORVASTATIN 40 MG TABLET PO SCH (09:05)
[2021-11-26] MEDS: MULTIVITAMIN (CENTRUM) TABLET PO SCH (09:05)
[2021-11-26] MEDS: SODIUM HYPOCHLORITE 0.25% IRRIG 473 ML BOTTLE TOP SCH (09:05)
[2021-11-26] MEDS: OMEGA 3 ACID ETHYL ESTERS 1 GM CAPSULE PO SCH (09:06)
[2021-11-26] MEDS: DESITIN 4OZ/NYSTATIN 15 GRAM MIXTURE PASTE TOP SCH ×2 (09:06→20:23)
[2021-11-26] MEDS: TAMSULOSIN 0.4 MG CAPSULE PO SCH (20:24)
[2021-11-26] MEDS: HYDROmorphone 1 MG/1 ML SYRINGE IV PRN (23:23)
[2021-11-27] MEDS: INSULIN LISPRO 100 UNIT/ML SUBCUT SCH ×4 (00:13→18:41)
[2021-11-27] MEDS: ALBUTEROL/IPRATROPIUM 3 ML NEB RESP TX SCH ×4 (00:45→19:32)
[2021-11-27] MEDS: DILTIAZEM 30 MG TABLET PO SCH ×4 (03:20→22:33)
[2021-11-27] MEDS: METOCLOPRAMIDE 10 MG/2 ML VIAL IV SCH ×4 (03:20→22:34)
[2021-11-27 05:57] LABS: Basophils % 0.5 % (0.0-0.8); Hematocrit 27.4 VOL% (42.0-52.0); Hemoglobin 7.9 GM/DL (14.0-18.0); Immature Granulocytes % 1.5 %; Immature Granulocytes Absolute 0.03 #; Lymphocytes # 0.2 10*3/uL (1.4-4.0); Lymphocytes % 10.7 % (21.2-54.2); Mean Corpuscular HGB Conc 28.8 GM/DL (32-36); Mean Corpuscular Volume 101.5 FL (87-102); Mean Platelet Volume 11.1 FL (9.6-12.0); Monocytes # 0.7 10*3/uL (0.11-0.8); Monocytes % 33.2 % (1.7-12.7); Neutrophils % 53.1 % (38.7-73.9); Platelet Count 243 T/CUMM (130-400); Red Cell Distribution Width 15.8 % (9.3-17.3)
[2021-11-27 06:08] LABS: Calcium 8.8 MG/DL (8.5-10.1); Potassium 4.4 MMOL/L (3.5-5.1)
[2021-11-27 06:21] LABS: Band Neutrophils 4 % (0-10); Lymphocytes 7 % (20-55); Platelet Estimate Adequate; Total Cells Counted 100
[2021-11-27 06:22] LABS: Hypochromia Slight
[2021-11-27] MEDS: INSULIN GLARGINE 100 UNIT/ML SUBCUT SCH (09:37)
[2021-11-27] MEDS: MULTIVITAMIN (CENTRUM) TABLET PO SCH (09:37)
[2021-11-27] MEDS: ATORVASTATIN 40 MG TABLET PO SCH (09:37)
[2021-11-27] MEDS: ASPIRIN CHEW 81 MG TABLET PO SCH (09:37)
[2021-11-27] MEDS: LORATADINE 10 MG TABLET PO SCH (09:38)
[2021-11-27] MEDS: ENOXAPARIN 30 MG/0.3 ML SYRINGE SUBCUT SCH (09:38)
[2021-11-27] MEDS: OMEGA 3 ACID ETHYL ESTERS 1 GM CAPSULE PO SCH (09:38)
[2021-11-27] MEDS: CYANOCOBALAMIN 500 MCG TABLET PO SCH (09:38)
[2021-11-27] MEDS: PANTOPRAZOLE 40 MG VIAL IV SCH (09:39)
[2021-11-27] MEDS: SODIUM HYPOCHLORITE 0.25% IRRIG 473 ML BOTTLE TOP SCH (09:40)
[2021-11-27] MEDS: DESITIN 4OZ/NYSTATIN 15 GRAM MIXTURE PASTE TOP SCH ×2 (09:40→22:34)
[2021-11-27] MEDS: FUROSEMIDE 40 MG/4 ML VIAL IV SCH (17:07)
[2021-11-27] MEDS: TAMSULOSIN 0.4 MG CAPSULE PO SCH (22:31)
[2021-11-28] MEDS: INSULIN LISPRO 100 UNIT/ML SUBCUT SCH ×2 (01:10→06:26)
[2021-11-28] MEDS: METOCLOPRAMIDE 10 MG/2 ML VIAL IV SCH ×2 (06:13→11:39)
[2021-11-28] MEDS: DILTIAZEM 30 MG TABLET PO SCH ×2 (06:14→10:53)
[2021-11-28] MEDS: ALBUTEROL/IPRATROPIUM 3 ML NEB RESP TX SCH ×2 (07:11)
[2021-11-28 07:39] LABS: Eosinophils % 0.5 % (0.00-10.9); Hematocrit 26.9 VOL% (42.0-52.0); Hemoglobin 7.8 GM/DL (14.0-18.0); Immature Granulocytes % 1.8 %; Immature Granulocytes Absolute 0.04 #; Lymphocytes # 0.3 10*3/uL (1.4-4.0); Lymphocytes % 13.4 % (21.2-54.2); Mean Corpuscular Volume 102.3 FL (87-102); Mean Platelet Volume 11.1 FL (9.6-12.0); Monocytes # 0.7 10*3/uL (0.11-0.8); Monocytes % 30.4 % (1.7-12.7); Neutrophils % 53.9 % (38.7-73.9); Platelet Count 282 T/CUMM (130-400); Red Blood Count 2.63 MC/CUMM (3.8-5.5); Red Cell Distribution Width 15.8 % (9.3-17.3); White Blood Count 2.2 T/CUMM (4-12)
[2021-11-28 07:52] LABS: Calcium 8.8 MG/DL (8.5-10.1); Osmolality,Calculated 343.1 MOS/KG (273-304)
[2021-11-28] MEDS ORDERED: FUROSEMIDE 40 MG/4 ML VIAL IV SCH (08:00)
[2021-11-28 08:02] LABS: Band Neutrophils 4 % (0-10); Lymphocytes 10 % (20-55); Platelet Estimate Adequate; Total Cells Counted 100
[2021-11-28 09:12] LABS: Arterial Base Excess iSTAT 5 MMOL/L (-2.5-2.5); Arterial Bicarbonate iSTAT 34.3 MMOL/L (20-26); Arterial O2 Saturation iSTAT 90 % (95-100); Arterial PCO2 iSTAT 93 MM HG (35-48); Arterial PO2 iSTAT 77 MM HG (80-95); Arterial Total CO2 iSTAT 37 MMO/L (23-27); Arterial pH iSTAT 7.175 (7.35-7.45)
[2021-11-28] MEDS: FUROSEMIDE 40 MG/4 ML VIAL IV SCH (09:46)
[2021-11-28] MEDS ORDERED: MORPHINE 2 MG/1 ML SYRINGE ONE (09:47)
[2021-11-28 09:48] VITALS: BP 127/33
[2021-11-28] MEDS: MORPHINE 2 MG/1 ML SYRINGE IV PRN ×4 (09:48→13:33)
[2021-11-28] MEDS ORDERED: LORazepam 1 MG TABLET PO PRN (10:03)
[2021-11-28] MEDS: MULTIVITAMIN (CENTRUM) TABLET PO SCH (11:02)
[2021-11-28] MEDS: ASPIRIN CHEW 81 MG TABLET PO SCH (11:02)
[2021-11-28] MEDS: INSULIN GLARGINE 100 UNIT/ML SUBCUT SCH (11:05)
[2021-11-28] MEDS: LORATADINE 10 MG TABLET PO SCH (11:05)
[2021-11-28] MEDS: SODIUM HYPOCHLORITE 0.25% IRRIG 473 ML BOTTLE TOP SCH (11:05)
[2021-11-28] MEDS: ATORVASTATIN 40 MG TABLET PO SCH (11:06)
[2021-11-28] MEDS: ENOXAPARIN 30 MG/0.3 ML SYRINGE SUBCUT SCH (11:23)
[2021-11-28] MEDS: OMEGA 3 ACID ETHYL ESTERS 1 GM CAPSULE PO SCH (11:23)
[2021-11-28] MEDS: PANTOPRAZOLE 40 MG VIAL IV SCH (11:24)
[2021-11-28] MEDS: CYANOCOBALAMIN 500 MCG TABLET PO SCH (11:39)
[2021-11-28] MEDS: DESITIN 4OZ/NYSTATIN 15 GRAM MIXTURE PASTE TOP SCH (11:39)
== END 2021-11-28 14:27 | disposition expired | DRG 329 ==
LOC: N.ED 14:05 → N.EDINP 16:51 → N.3E 17:39 → N.CC 11-12 13:40 → N.5E 11-27 17:45
PROVIDERS: ADMIT Surgery; ATTEND Surgery